=== PATIENT | female | born 1950 | race African-American/Black ===

== ENCOUNTER 2021-06-27 22:25 | Emergency (ER) | payer OTHER ==
--- OUTSIDE RECORDS SUMMARY | 2021-06-27 22:28 | XMS REPORT | Continuity of Care Document ---
:1950 Author Organization [facility] t Address [address] [place] [address] Care Team Providers Name Role Phone Antonino_Vinicio_EALGE Attending Clinician Unavailable Ambrose_A_AH Attending Clinician Unavailable Leeann KELLER Attending Clinician Unavailable Lc HERNANDEZ S Attending Clinician Vinicio MCFADDEN Attending Clinician Unavailable Grupo Mcdaniel MD Attending Clinician Doctor Unassigned, Name Attending Clinician Unavailable Grupo MCDANIEL Attending Clinician Unavailable Antonino_S_AH Admitting Clinician Unavailable Ambrose_A_AH Admitting Clinician Unavailable Payers Payer Name Policy Type Policy Number Effective Date Expiration Date Vinicio garcia [facility] [id number] [facility] (MEDICARE REPLACEMENT/ADVANT AGE - HMO) [facility] [id number] 2018 PLUS CLASSIC/VALUE 00:00:00 Problems Condition Condition Condition Status Onset Resolution Last Treating Co mments Source Name Details Category Date Date Treatment Clinician Date Hyperchole Hyperchole Problem Active [facility] sterolemia sterolemia 1-04 Fa stewart 00:00: Practic 00 e Frailty Frailty Problem Active 2019-05 Village 2-31 Family 00:00: Practic 00 e Hypothyroi Hypothyroi Problem Active [facility] dism dism 3-11 Family 00:00: Practic 00 e Essential Essential Problem Active Savi judi hypertensi Hypertensi 3-11 Fa stewart on on 00:00: Practic 00 e No known No known Disease Unive rs active active ity of problems problems [facility] Allergies, Adverse Reactions, Alerts Allergy Allergy Status Severity Reaction(s) Onset Inactive Treating Comm ents Source Name Type Date Date Clinician NO KNOWN Drug Active Univers ALLERGIE Class ity of S [facility] Social History Social Habit Start Date Stop Date Quantity Comments Source Exposure to Not sure [facility] SARS-CoV-2 [place] [facility] (event) Branch Sex Assigned At [facility] y of [facility] Alcohol intake 2020-01-13 2020-01-13 Current University 00:00:00 00:00:00 non-drinker of [facility] alcohol [place] (finding) Tobacco use and 2020-01-13 2020-01-13 Never used Universit y of exposure 00:00:00 00:00:00 [facility] Smoking Status Start Date Stop Date Source Never smoker [facility] Medications Ordered Filled Start Stop Current Ordering Indication Dosage Frequency Signature Comments Components Source Medication Medication Date Date Medication? Clinician (SIG) Name Name MELOXICAM 2019-05 Yes [id number] Take 1 Un abhinav 7.5 mg 0-21 tablet by ity of tablet 00:00: mouth once [place] 00 daily Medical Branch meloxicam Yes [id number] 7.5mg Take 1 U nivers 7.5 mg 9-01 tablet by ity of tablet 00:00: mouth [place] 00 daily. Medical Branch meloxicam Yes [id number] 7.5mg Take 1 U nivers 7.5 mg 9-01 tablet by ity of tablet 00:00: mouth [place] 00 daily. [facility] meloxicam 2020- No [id number] 7.5mg Take 1 Univers 7.5 mg 9-01 10-21 tablet by ity of tablet 00:00: 00:00 mouth [place] 00 :00 daily. [facility] Branch amLODIPine Yes 10mg Take 10 mg U nivers 10 mg 7-29 by mouth ity of tablet 19:07: daily. [address] hydroCHLORO Yes 25mg Take 25 mg Univers thiazide 25 7-29 by mouth ity of mg tablet 19:07: daily. [address] METOPROLOL Yes 50mg Take 50 mg U nivers SUCCINATE 7-29 by mouth. ity o f ORAL 19:07: [address] levothyroxi Yes 50ug Take 50 Uni vers ne 7-29 mcg by ity of (SYNTHROID) 19:07: mouth [place] 50 mcg 15 every Medical tablet morning. Branch amLODIPine 2019- Yes 10mg Take 10 mg U nivers 10 mg 7-29 by mouth ity of tablet 19:07: daily. [address] hydroCHLORO 2018-0 Yes 25mg Take 25 mg Univers thiazide 25 7-29 by mouth ity of mg tablet 19:07: daily. [address] METOPROLOL 2018- Yes 50mg Take 50 mg U nivers SUCCINATE 7-29 by mouth. ity o f ORAL 19:07: [address] levothyroxi 2018- Yes 50ug Take 50 Uni vers ne 7-29 mcg by ity of (SYNTHROID) 19:07: mouth [place] 50 mcg 15 every Medical tablet morning. Branch amLODIPine Yes 10mg Take 10 mg U nivers 10 mg 7-29 by mouth ity of tablet 19:07: daily. [address] hydroCHLORO Yes 25mg Take 25 mg Univers thiazide 25 7-29 by mouth ity of mg tablet 19:07: daily. [address] METOPROLOL Yes 50mg Take 50 mg U nivers SUCCINATE 7-29 by mouth. ity o f ORAL 19:07: [address] levothyroxi 2018- Yes 50ug Take 50 Uni vers ne 7-29 mcg by ity of (SYNTHROID) 19:07: mouth [place] 50 mcg 15 every Medical tablet morning. Branch amLODIPine Yes 10mg Take 10 mg U nivers 10 mg 7-29 by mouth ity of tablet 19:07: daily. [address] hydroCHLORO 2018- Yes 25mg Take 25 mg Univers thiazide 25 7-29 by mouth ity of mg tablet 19:07: daily. [address] METOPROLOL 2018-0 Yes 50mg Take 50 mg U nivers SUCCINATE 7-29 by mouth. ity o f ORAL 19:07: [address] levothyroxi 2018-0 Yes 50ug Take 50 Uni vers ne 7-29 mcg by ity of (SYNTHROID) 19:07: mouth [place] 50 mcg 15 every Medical tablet morning. Branch amLODIPine 2019- Yes 10mg Take 10 mg U nivers 10 mg 7-29 by mouth ity of tablet 19:07: daily. [address] hydroCHLORO 2018- Yes 25mg Take 25 mg Univers thiazide 25 7-29 by mouth ity of mg tablet 19:07: daily. [address] METOPROLOL Yes 50mg Take 50 mg U nivers SUCCINATE 7-29 by mouth. ity o f ORAL 19:07: [address] levothyroxi Yes 50ug Take 50 Uni vers ne 7-29 mcg by ity of (SYNTHROID) 19:07: mouth [place] 50 mcg 15 every Medical tablet morning. Branch amLODIPine Yes 10mg Take 10 mg U nivers 10 mg 7-29 by mouth ity of tablet 19:07: daily. [address] hydroCHLORO Yes 25mg Take 25 mg Univers thiazide 25 7-29 by mouth ity of mg tablet 19:07: daily. [address] METOPROLOL Yes 50mg Take 50 mg U nivers SUCCINATE 7-29 by mouth. ity o f ORAL 19:07: [address] levothyroxi Yes 50ug Take 50 Uni vers ne 7-29 mcg by ity of (SYNTHROID) 19:07: mouth [place] 50 mcg 15 every Medical tablet morning. Branch amLODIPine Yes 10mg Take 10 mg U nivers 10 mg 7-29 by mouth ity of tablet 19:07: daily. [address] hydroCHLORO 2018- Yes 25mg Take 25 mg Univers thiazide 25 7-29 by mouth ity of mg tablet 19:07: daily. [address] METOPROLOL Yes 50mg Take 50 mg U nivers SUCCINATE 7-29 by mouth. ity o f ORAL 19:07: [address] levothyroxi Yes 50ug Take 50 Uni vers ne 7-29 mcg by ity of (SYNTHROID) 19:07: mouth [place] 50 mcg 15 every Medical tablet morning. Branch amLODIPine Yes 10mg Take 10 mg U nivers 10 mg 7-29 by mouth ity of tablet 19:07: daily. [address] hydroCHLORO Yes 25mg Take 25 mg Univers thiazide 25 7-29 by mouth ity of mg tablet 19:07: daily. [address] METOPROLOL Yes 50mg Take 50 mg U nivers SUCCINATE 7-29 by mouth. ity o f ORAL 19:07: [address] levothyroxi Yes 50ug Take 50 Uni vers ne 7-29 mcg by ity of (SYNTHROID) 19:07: mouth [place] 50 mcg 15 every Medical tablet morning. Branch amLODIPine Yes 10mg Take 10 mg U nivers 10 mg 7-29 by mouth ity of tablet 19:07: daily. [address] hydroCHLORO Yes 25mg Take 25 mg Univers thiazide 25 7-29 by mouth ity of mg tablet 19:07: daily. [address] METOPROLOL Yes 50mg Take 50 mg U nivers SUCCINATE 7-29 by mouth. ity o f ORAL 19:07: [address] levothyroxi Yes 50ug Take 50 Uni vers ne 7-29 mcg by ity of (SYNTHROID) 19:07: mouth [place] 50 mcg 15 every Medical tablet morning. Branch amLODIPine Yes 10mg Take 10 mg U nivers 10 mg 7-29 by mouth ity of tablet 19:07: daily. [address] hydroCHLORO Yes 25mg Take 25 mg Univers thiazide 25 7-29 by mouth ity of mg tablet 19:07: daily. [address] METOPROLOL Yes 50mg Take 50 mg U nivers SUCCINATE 7-29 by mouth. ity o f ORAL 19:07: [address] levothyroxi Yes 50ug Take 50 Uni vers ne 7-29 mcg by ity of (SYNTHROID) 19:07: mouth [place] 50 mcg 15 every Medical tablet morning. Branch amLODIPine Yes 10mg Take 10 mg U nivers 10 mg 7-29 by mouth ity of tablet 19:07: daily. [address] hydroCHLORO Yes 25mg Take 25 mg Univers thiazide 25 7-29 by mouth ity of mg tablet 19:07: daily. [address] METOPROLOL Yes 50mg Take 50 mg U nivers SUCCINATE 7-29 by mouth. ity o f ORAL 19:07: [address] levothyroxi Yes 50ug Take 50 Uni vers ne 7-29 mcg by ity of (SYNTHROID) 19:07: mouth [place] 50 mcg 15 every Medical tablet morning. Branch amLODIPine Yes 10mg Take 10 mg U nivers 10 mg 7-29 by mouth ity of tablet 19:07: daily. [address] hydroCHLORO 2018- Yes 25mg Take 25 mg Univers thiazide 25 7-29 by mouth ity of mg tablet 19:07: daily. [address] METOPROLOL Yes 50mg Take 50 mg U nivers SUCCINATE 7-29 by mouth. ity o f ORAL 19:07: [address] levothyroxi Yes 50ug Take 50 Uni vers ne 7-29 mcg by ity of (SYNTHROID) 19:07: mouth [place] 50 mcg 15 every Medical tablet morning. Branch amLODIPine Yes 10mg Take 10 mg U nivers 10 mg 7-29 by mouth ity of tablet 19:07: daily. [address] hydroCHLORO Yes 25mg Take 25 mg Univers thiazide 25 7-29 by mouth ity of mg tablet 19:07: daily. [address] METOPROLOL Yes 50mg Take 50 mg U nivers SUCCINATE 7-29 by mouth. ity o f ORAL 19:07: [address] levothyroxi Yes 50ug Take 50 Uni vers ne 7-29 mcg by ity of (SYNTHROID) 19:07: mouth [place] 50 mcg 15 every Medical tablet morning. Branch amLODIPine Yes 10mg Take 10 mg U nivers 10 mg 7-29 by mouth ity of tablet 19:07: daily. [address] hydroCHLORO Yes 25mg Take 25 mg Univers thiazide 25 7-29 by mouth ity of mg tablet 19:07: daily. [address] METOPROLOL Yes 50mg Take 50 mg U nivers SUCCINATE 7-29 by mouth. ity o f ORAL 19:07: [address] levothyroxi Yes 50ug Take 50 Uni vers ne 7-29 mcg by ity of (SYNTHROID) 19:07: mouth [place] 50 mcg 15 every Medical tablet morning. Branch amLODIPine Yes 10mg Take 10 mg U nivers 10 mg 7-29 by mouth ity of tablet 19:07: daily. [address] hydroCHLORO Yes 25mg Take 25 mg Univers thiazide 25 7-29 by mouth ity of mg tablet 19:07: daily. [address] METOPROLOL Yes 50mg Take 50 mg U nivers SUCCINATE 7-29 by mouth. ity o f ORAL 19:07: [place] [id number] Medical Branch levothyroxi Yes 50ug Take 50 Uni vers ne 7-29 mcg by ity of (SYNTHROID) 19:07: mouth [place] 50 mcg 15 every Medical tablet morning. Branch diclofenac Yes [id number] 75mg Take 1 Univers 75 mg EC 7- 9104 tablet by ity of tablet 00:00: mouth 2 [place] 00 (two) Medical times Branch daily with meals. diclofenac Yes [id number] 75mg Take 1 Univers 75 mg EC 7- 9104 tablet by ity of tablet 00:00: mouth 2 [place] 00 (two) Medical times Branch daily with meals. diclofenac Yes [id number] 75mg Take 1 Univers 75 mg EC 7- 9104 tablet by ity of tablet 00:00: mouth 2 [place] 00 (two) Medical times Branch daily with meals. hydroCHLORO Yes 25mg Take 25 mg Univers thiazide 25 1-09 by mouth ity of mg tablet 17:13: daily. [address] METOPROLOL Yes 50mg Take 50 mg U nivers SUCCINATE 1-09 by mouth. ity o f ORAL 17:13: [address] levothyroxi Yes 50ug Take 50 Uni vers ne 1-09 mcg by ity of (SYNTHROID) 17:13: mouth [place] 50 mcg 29 every Medical tablet morning. Branch amLODIPine Yes 10mg Take 10 mg U nivers 10 mg 1-09 by mouth ity of tablet 17:13: daily. [address] amlodipine amlodipine No 1 Q1D amlodipine [place] 10 mg 10 mg 10 mg Family tablet Take tablet Take tablet Practic 1 tablet 1 tablet Take 1 e every day every day tablet by oral by oral every day route as route as by oral directed directed route as for 30 for 30 directed days. days. for 30 days. Centrum Centrum No Centrum [place] Silver Silver Silver Family Practic e levothyroxi levothyroxi No 1capsul Q1D levothyrox [place] ne 50 mcg ne 50 mcg e(s) ine 50 mcg Family capsule capsule capsule Practi c Take 1 Take 1 Take 1 e capsule capsule capsule every day every day every day by oral by oral by oral route. route. route. levothyroxi levothyroxi No 1 Q1D levothyrox [facility] ne 50 mcg ne 50 mcg ine 50 mcg Family tablet Take tablet Take tablet Practic 1 tablet 1 tablet Take 1 e every day every day tablet by oral by oral every day route as route as by oral directed directed route as for 30 for 30 directed days. days. for 30 days. metoprolol metoprolol No 1 Q1D metoprolol [facility] succinate succinate succinate [facility] ER 25 mg ER 25 mg ER 25 mg Pra ctic tablet,exte tablet,exte tablet,ext e nded nded ended release 24 release 24 release 24 hr Take 1 hr Take 1 hr Take 1 tablet tablet tablet every day every day every day by oral by oral by oral route as route as route as directed directed directed for 30 for 30 for 30 days. days. days. omega 3 500 omega 3 500 No 1capsul Q1D omega 3 [facility] mg-dha-epa- mg-dha-epa- e(s) 500 F amily B12 500 B12 500 mg-dha-epa Pra ctic mcg-FA 1 mcg-FA 1 -B12 500 e mg-B6 12.5 mg-B6 12.5 mcg-FA 1 mg-phytoste mg-phytoste mg-B6 12.5 rol cap rol cap mg-phytost Take 1 Take 1 price cap capsule capsule Take 1 every day every day capsule by oral by oral every day route. route. by oral route. rosuvastati rosuvastati No 1 Q1D rosuvastat [facility] n 10 mg n 10 mg in 10 mg Famil y tablet Take tablet Take tablet Practic 1 tablet 1 tablet Take 1 e every day every day tablet by oral by oral every day route. route. by oral route. Immunizations Ordered Immunization Filled Immunization Date Status Commen ts Source Name Name influenza, influenza, 2020-04-13 Completed [facility] injectable, injectable, 00:00:00 Practice quadrivalent quadrivalent Vital Signs Vital Name Observation Time Observation Value Comments Source BP Diastolic 2020-05-17 00:00:00 80 mm[Hg] [facility] Height 2020-05-17 00:00:00 65 [in_i] [facility] BMI (Body Mass 2020-05-17 00:00:00 32.4 kg/m2 [facility] Index) Practice BP Systolic 2020-05-17 00:00:00 140 mm[Hg] [facility] Body Weight 2020-05-17 00:00:00 195 [lb_av] [facility] Practice Systolic blood 2020-01-13 13:33:00 131 mm[Hg] Univer sity of pressure [facility] Branch Diastolic blood 2020-01-13 13:33:00 81 mm[Hg] Unive rsity of pressure [facility] Branch Heart rate 2020-01-13 13:33:00 79 /min Universi ty of [facility] Branch Body height 2020-01-13 13:33:00 167.6 cm Universi ty of [place] [facility] Body weight 2020-01-13 13:33:00 89.812 kg Universi ty of [place] [facility] BMI 2020-01-13 13:33:00 31.96 kg/m2 Universi ty of [facility] Branch Systolic blood 2020-01-13 13:33:00 131 mm[Hg] Univer sity of pressure [facility] Branch Diastolic blood 2020-01-13 13:33:00 81 mm[Hg] Unive rsity of pressure [facility] Branch Heart rate 2020-01-13 13:33:00 79 /min Universi ty of [place] [facility] Body height 2020-01-13 13:33:00 167.6 cm Universi ty of [place] [facility] Body weight 2020-01-13 13:33:00 89.812 kg Universi ty of [place] [facility] BMI 2020-01-13 13:33:00 31.96 kg/m2 Universi ty [facility] [place] [facility] Systolic blood 2019-12-11 15:20:00 151 mm[Hg] Univer sity of pressure [facility] Branch Diastolic blood 2019-12-11 15:20:00 80 mm[Hg] Unive rsity of pressure [facility] Branch Heart rate 2019-12-11 15:20:00 93 /min Universi ty of [place] [facility] Body height 2019-12-11 15:20:00 167.6 cm Universi ty [facility] [place] [facility] Body weight 2019-12-11 15:20:00 90.719 kg Universi ty [facility] [place] [facility] BMI 2019-12-11 15:20:00 32.28 kg/m2 Universi ty of [place] [facility] Systolic blood 2018-12-09 19:00:00 142 mm[Hg] Univer sity of pressure [facility] Branch Diastolic blood 2018-12-09 19:00:00 83 mm[Hg] Unive rsity [facility] Heart rate 2018-12-09 19:00:00 76 /min [facility] Respiratory rate 2018-12-09 19:00:00 18 /min [facility] Body height 2018-12-09 19:00:00 165.1 cm [facility] Body weight 2018-12-09 19:00:00 89.359 kg [facility] BMI 2018-12-09 19:00:00 32.78 kg/m2 [facility] Procedures Procedure Date / Time Performing Clinician Source Performed INSURANCE CORRESPONDENCE 2019-12-26 05:01:00 Doctor Unassigned, [facility] [place] [facility] XR KNEE 3 VW LEFT 2019-12-11 15:07:07 Shen Mcdaniel [facility] REFERRAL- 2019-12-08 05:01:00 Doctor Unassigned, [facility] REQUEST/RESPONSE [place] [facility] XR KNEE <3 VW RIGHT 2018-12-09 19:02:49 Shen Mcdaniel [facility] REFERRAL- 2018-12-03 05:01:00 Doctor Unaleeigned, [facility] REQUEST/RESPONSE [place] [place] [facility] Mastectomy of Right 2005-05-15 00:00:00 [facility] Breast Practice Clipping of Intracranial [facility] Aneurysm Practice Plan of Care Planned Activity Planned Date Details Comments Source Instructions [facility] Encounters Start End Encounter Admission Attending Care Care Encounter Source Date/Time Date/Time Type Type Clinicians Facility Department ID 2020-10-20 2020-10-20 Outpatient Miller_S_AH VFP VFP [id number] [facility] 12:22:00 12:22:00 [id number] Family Practic e 2020-09-29 2020-09-29 Outpatient Georgi-Mbayo VFP VFP [id number] [facility] 08:21:00 08:21:00 _A_AH [id number] Family Practic e 2020-07-17 2020-07-17 Outpatient [facility] [id number] Univers 14:50:00 14:50:00 ity [facility] 2020-07-15 2020-07-15 Outpatient Georgi-Mbayo VFP VFP [id number] [facility] 10:21:00 10:21:00 _A_AH [id number] Family Practic e 2020-07-15 2020-07-15 Outpatient Georgi-Mbayo VFP VFP [id number] [facility] 10:21:00 10:21:00 _A_AH [id number] Family Practic e 2020-06-19 2020-06-19 Outpatient Immanuel KELLER, [facility] [id number] Univers 15:30:00 15:30:00 BRUNO leydi [facility] 2020-05-17 2020-05-17 Outpatient Georgi-Mbayo VFP VFP [id number] 10:58:00 10:58:00 _A_AH [id number] Family Practic e 2020-05-17 2020-05-17 Darling VFP [place] - [id number] V illage 00:00:00 00:00:00 Magdy [facility] [address] 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 2020-03-02 2020-03-02 Refcarolyn Mcfadden [facility] [id number] Univers 00:00:00 00:00:00 [facility] [id number] it y of Surgical [id number] [place] as Specialti [id number] [address] 2020-01-13 2020-01-13 Office Lc MEUBALDO 1.2.840.114 [id number] Univers 08:24:11 08:39:11 Visit [facility] [id number] it y of Surgical [id number] [place] as Specialti [id number] Mt dical es [address] [facility] 2020-01-13 2020-01-13 [facility] 1.2.840.114 [id number] 08:24:11 08:39:11 Visit [facility] [id number] Surgical [id number] Specialti [id number] [address] 2020-01-13 2020-01-13 [facility] [id number] Univers 08:30:00 08:30:00 LEE ANN ity [facility] 2020-01-13 2020-01-13 Outpatient Immanuel [facility] [id number] Univers 08:30:00 08:30:00 [facility] 2019-12-31 2019-12-31 Telephone [facility] 1.2.840.114 [id number] Univers 00:00:00 00:00:00 [facility] [employer] [id number] it y of Surgical [id number] [place] as Specialti [id number] Mt dical es [address] [place] [address] 2019-12-26 2019-12-26 Orders Doctor SUNSHINE 1.2.840.114 [id number] Univers 00:00:00 00:00:00 Only Unassigned, MAHNAZ [id number] ity of [facility] 4.2.7.2.686 Luis as [id number] [address] 2019-12-26 2019-12-26 Orders Doctor BITA 1.2.840.114 [id number] 00:00:00 00:00:00 Only Unassigned, MAHNAZ [id number] [facility] 4.2.7.2.686 [id number] [facility] 2019-12-25 2019-12-25 Telephone [facility] 1.2.840.114 [id number] Univers 00:00:00 00:00:00 [facility] [id number] it y of Surgical [id number] [place] as Specialti [id number] Mt dical es [address] [facility] 2019-12-24 2019-12-24 Telephone [facility] 1.2.840.114 [id number] Univers 00:00:00 00:00:00 Shen [facility] [id number] it y of Surgical [id number] [place] as Specialti [id number] Mt dical es 198 [facility] 2019-12-11 2019-12-11 Hospital [facility] 1.2.840.114 [id number] Univers 09:35:00 23:59:00 Encounter Shne Matthews [id number] ity of [place]2.686 [place] [id number] [facility] [address] [place] 2019-12-11 2019-12-11 Office [facility] [id number] Univers 10:14:11 10:57:50 Visit Shen Carrasquillo [id number] it y of Surgical 4.2.7.2.686 [place] as Specialti [id number] Mt dical es [address] [facility] 2019-12-11 2019-12-11 Outpatient R [facility] [id number] Univers 10:15:00 10:15:00 SHEN [id number] ity of [facility] 2019-12-11 2019-12-11 Outpatient R [facility] [id number] Univers 10:15:00 10:15:00 SHEN ity of [facility] 2019-12-10 2019-12-10 Telephone [facility] 1.2.840.114 [id number] Univers 00:00:00 00:00:00 Shen [facility] [id number] it y of Surgical 4.2.7.2.686 [place] as Specialti [id number] Mt dical es 198 [facility] 2019-12-08 2019-12-08 Orders Doctor BITA 1.2.840.114 [id number] Univers 00:00:00 00:00:00 Only Unassigned, MAHNAZ [id number] ity of [facility] 4.2.7.2.686 Luis as [id number] [facility] 009 Branch 2019-07-02 2019-07-02 Outpatient Ambrose [facility] [id number] [facility] 07:14:00 07:14:00 _A_ [id number] Family Practic e 2018-12-09 2018-12-09 Hospital Leticia [facility] 1.2.840.114 [id number] Univers 14:02:48 23:59:00 Encounter Shen Carrasquillo [id number] ity of Surgical 4.2.7.2.686 [place] as Specialti [id number] Mt dical es 809 [facility] 2018-12-09 2018-12-09 Office Leticia [facility] [id number] Univers 13:41:33 14:27:53 Visit Shen Carrasquillo [id number] it y of Surgical 4.2.7.2.686 [place] as Specialti [id number] Mt dical es 198 [facility] 2018-12-03 2018-12-03 Orders Doctor BITA 1.2.840.114 [id number] Univers 00:00:00 00:00:00 Only Unassigned, MAHNAZ [id number] ity of [facility] 4.2.7.2.686 Luis as [id number] [facility] 009 Branch Results Test Description Test Time Test Comments Results Result [facility] e Comments XR KNEE 3 VW 2019-11-14 HISTORY: ?Pain. Univers ity of LEFT 0 FINDINGS: Standing [facility] 15:10:08 AP and lateral Branch views of left knee showed no acutefracture or dislocation. No significant changes of arthritis or aggressivebone lesions seen. No significant knee joint effusion. CONCLUSIONS: No acute fracture or dislocation in left knee. [facility] Results Inft User - 12/11/2019 10:11 AM CDTHISTORY: Pain.FINDINGS: Standing AP and lateral views of left knee showed no acutefracture or dislocation. No significant changes of arthritis or aggressivebone lesions seen. No significant knee joint effusion.CONCLUSION S: No acute fracture or dislocation in left knee. XR KNEE <3 VW 2018-11-12 [facility] [facility] 9 osteoarthritis [facility] 20:22:26 Branch
[2021-06-27 23:53] LABS: Protime INR 1.01
[2021-06-27 23:54] LABS: Absolute Lymphocytes (CBC) 2.5 K/uL (0.7-4.9); Hematocrit 38.9 % (36.0-45.0); Lymphocytes % 28.9 % (15.3-44.8); RBC Red Blood Cell Count 4.35 M/uL (3.86-4.86)
[2021-06-28 00:10] LABS: ALT/SGPT 23 U/L (12-78); AST/SGOT 19 U/L (15-37); Albumin 3.5 g/dL (3.4-5.0); Alkaline Phosphatase 131 U/L (45-117); BUN Blood Urea Nitrogen 18 mg/dL (7-18); Bicarbonate 32 mmol/L (21-32); Bilirubin Direct < 0.1 mg/dL (0-0.2); Bilirubin Total 0.2 mg/dL (0.2-1.0); Glucose Level 113 mg/dL (74-106); Magnesium 2.1 mg/dL (1.8-2.4); NT PRO-BNP 188 pg/mL (<125); Potassium 3.2 mmol/L (3.5-5.1); Sodium Level 139 mmol/L (136-145)
--- NOTE | 2021-06-28 00:39 | ER ---
Nurse's Notes [facility] Name: Berenice Chatman Age: 70 yrs Sex: Female : 1950 Arrival Date: 06/27/2021 Time: 22:27 Bed 15 Private MD: Diagnosis: Essential (primary) hypertension;Hypokalemia;Dizziness and giddiness Presentation: 06/27 22:40 Chief complaint: Patient states: High Blood Pressure which has been getting worse over st1 the past 2 weeks. The patient has been on losartan since 06/15/2021 which has not been working for her. Coronavirus screen: Vaccine status: Patient reports receiving the 2nd dose of the covid vaccine. moderna Client denies travel out of the [place] in the last 14 days. Ebola Screen: No symptoms or risks identified at this time. Initial Sepsis Screen: Does the patient meet any 2 criteria? No. Patient's initial sepsis screen is negative. Risk Assessment: Do you want to hurt yourself or someone else? Patient reports no desire to harm self or others. 22:40 Method Of Arrival: Ambulatory st1 22:42 Acuity: ASHLEY 3 st1 06/28 00:30 Initial Sepsis Screen: Does the patient have a suspected source of infection? No. vc1 Patient's initial sepsis screen is negative. Onset of symptoms is unknown. Triage Assessment: 06/27 22:45 General: Appears in no apparent distress. comfortable, Behavior is calm, cooperative. st1 Pain: Denies pain. Historical: - Allergies: 22:43 Lisinopril; st1 - PMHx: 22:43 Hypertensive disorder; Aneurysm; st1 - Immunization history:: Adult Immunizations up to date. - Social history:: Patient/guardian denies using alcohol, street drugs, IV drugs, Smoking status: Patient denies any tobacco usage or history of. - Family history:: not pertinent. Screenin:00 Abuse screen: Denies threats or abuse. Nutritional screening: No deficits noted. vc1 Tuberculosis screening: No symptoms or risk factors identified. Fall Risk None identified. Assessment: 23:00 General: Appears in no apparent distress. comfortable, Behavior is calm, cooperative, vc1 appropriate for age. Pain: Denies pain. Neuro: No deficits noted. Cardiovascular: Reports since High BP Denies chest pain. 23:00 Respiratory: No deficits noted. vc1 06/28 00:48 Reassessment: Patient appears in no apparent distress at this time. Patient and/or vc1 family updated on plan of care and expected duration. Pain level reassessed. Patient is alert, oriented x 3, equal unlabored respirations, skin warm/dry/pink. Patient states symptoms have improved. Vital Signs: 06/27 22:42 BP 176 / 90; Pulse 70; Resp 20; Temp 97.8(O); Pulse Ox 100% on R/A; Weight 88.45 kg; st1 Height 5 ft. 5 in. (165.10 cm); Pain 0/10; 06/28 00:00 BP 159 / 86; Pulse 69; Resp 20; Pulse Ox 100% ; vc1 00:30 BP 150 / 83; Pulse 64; Resp 18; Pulse Ox 100% ; Pain 0/10; vc1 06/27 22:42 Body Mass Index 32.45 (88.45 kg, 165.10 cm) st1 ED Course: 06/27 22:27 Patient arrived in ED. es 22:42 Triage completed. st1 22:46 Arm band placed on right wrist. st1 22:49 Brian Chatman MD is Attending Physician. drew 23:00 Patient has correct armband on for positive identification. Placed in gown. Bed in low vc1 position. Call light in reach. Side rails up X2. hospital security officer on. Pulse ox on. NIBP on. 23:29 XRAY Chest (1 view) Sent. vc1 23:29 Basic Metabolic Panel Sent. vc1 23:29 CBC with Diff Sent. vc1 23:29 LFT's Sent. vc1 23:29 Magnesium Sent. vc1 23:29 NT PRO-BNP Sent. vc1 23:29 PT-INR Sent. vc1 23:29 Troponin HS Sent. vc1 23:33 XRAY Chest (1 view) In Process Unspecified. EDMS 23:42 Basic Metabolic Panel Sent. vc1 23:42 CBC with Diff Sent. vc1 23:42 LFT's Sent. vc1 23:42 Magnesium Sent. vc1 23:42 NT PRO-BNP Sent. vc1 23:42 PT-INR Sent. vc1 23:42 Troponin HS Sent. vc1 06/28 00:38 Miguel Angel lEder MD is Referral Physician. drew 00:46 Lizbeth Ferrera, RN is Primary Nurse. vc1 01:06 No provider procedures requiring assistance completed. IV discontinued, intact, vc1 bleeding controlled, No redness/swelling at site. Pressure dressing applied. Administered Medications: 01:06 Drug: Potassium Effervescent Tablet 50 mEq Route: PO; vc1 01:06 Follow up: Response: No adverse reaction vc1 Outcome: 00:38 Discharge ordered by . [facility] 01:06 Discharged to home ambulatory. vc1 01:06 Condition: good 01:06 Discharge instructions given to patient, Instructed on discharge instructions, follow up and referral plans. Demonstrated understanding of instructions, follow-up care. 01:06 Patient left the ED. vc1 Signatures: Dispatcher [employer] Brian Cabrera MD MD cha Salyer, Edna es Tingle, Shellie, RN RN st1 Lizbeth Ferrera, RN RN vc1
--- NOTE | 2021-06-28 00:40 | EDPHYS ---
Physician Documentation [facility] Name: Berenice Chatman Age: 70 yrs Sex: Female : 1950 Arrival Date: 06/27/2021 Time: 22:27 Bed 15 Private MD: ED Physician Brian Chatman HPI: 06/28 00:13 This 70 yrs old Black Female presents to ER via Ambulatory with complaints of High drew Blood Pressure. 00:13 The patient has elevated blood pressure and discovered this at home. Onset: The drew symptoms/episode began/occurred just prior to arrival. Modifying factors: The symptoms are aggravated by activity, The symptoms are alleviated by remaining still. Associated signs and symptoms: Pertinent positives: dizziness. Severity of symptoms: At its worst the blood pressure was mild, moderate, in the emergency department the blood pressure is improved, moderately. The patient has experienced similar episodes in the past, multiple times. Historical: - Allergies: 06/27 22:43 Lisinopril; st1 - PMHx: 22:43 Hypertensive disorder; Aneurysm; st1 - Immunization history:: Adult Immunizations up to date. - Social history:: Patient/guardian denies using alcohol, street drugs, IV drugs, Smoking status: Patient denies any tobacco usage or history of. - Family history:: not pertinent. ROS: 06/28 00:13 Constitutional: Negative for fever, chills, and weight loss, Eyes: Negative for injury, drew pain, redness, and discharge, ENT: Negative for injury, pain, and discharge, Neck: Negative for injury, pain, and swelling, Cardiovascular: Negative for chest pain, palpitations, and edema, Respiratory: Negative for shortness of breath, cough, wheezing, and pleuritic chest pain, Abdomen/GI: Negative for abdominal pain, nausea, vomiting, diarrhea, and constipation, Back: Negative for injury and pain, : Negative for injury, bleeding, discharge, and swelling, MS/Extremity: Negative for injury and deformity, Skin: Negative for injury, rash, and discoloration, Psych: Negative for depression, anxiety, suicide ideation, homicidal ideation, and hallucinations, Allergy/Immunology: Negative for hives, rash, and allergies, Endocrine: Negative for neck swelling, polydipsia, polyuria, polyphagia, and marked weight changes, Hematologic/Lymphatic: Negative for swollen nodes, abnormal bleeding, and unusual bruising. Neuro: Positive for dizziness. Exam: 00:13 Constitutional: This is a well developed, well nourished patient who is awake, alert, drew and in no acute distress. Head/Face: Normocephalic, atraumatic. Eyes: Pupils equal round and reactive to light, extra-ocular motions intact. Lids and lashes normal. Conjunctiva and sclera are non-icteric and not injected. Cornea within normal limits. Periorbital areas with no swelling, redness, or edema. ENT: Nares patent. No nasal discharge, no septal abnormalities noted. Tympanic membranes are normal and external auditory canals are clear. Oropharynx with no redness, swelling, or masses, exudates, or evidence of obstruction, uvula midline. Mucous membranes moist. Neck: Trachea midline, no thyromegaly or masses palpated, and no cervical lymphadenopathy. Supple, full range of motion without nuchal rigidity, or vertebral point tenderness. No Meningismus. Chest/axilla: Normal chest wall appearance and motion. Nontender with no deformity. No lesions are appreciated. Cardiovascular: Regular rate and rhythm with a normal S1 and S2. No gallops, murmurs, or rubs. Normal PMI, no JVD. No pulse deficits. Respiratory: Lungs have equal breath sounds bilaterally, clear to auscultation and percussion. No rales, rhonchi or wheezes noted. No increased work of breathing, no retractions or nasal flaring. Abdomen/GI: Soft, non-tender, with normal bowel sounds. No distension or tympany. No guarding or rebound. No evidence of tenderness throughout. Back: No spinal tenderness. No costovertebral tenderness. Full range of motion. Female : Normal external genitalia. Skin: Warm, dry with normal turgor. Normal color with no rashes, no lesions, and no evidence of cellulitis. MS/ Extremity: Pulses equal, no cyanosis. Neurovascular intact. Full, normal range of motion. Neuro: Awake and alert, GCS 15, oriented to person, place, time, and situation. Cranial nerves II-XII grossly intact. Motor strength 5/5 in all extremities. Sensory grossly intact. Cerebellar exam normal. Normal gait. Psych: Awake, alert, with orientation to person, place and time. Behavior, mood, and affect are within normal limits. 00:13 ECG was reviewed by the Attending Physician. Vital Signs: 06/27 22:42 BP 176 / 90; Pulse 70; Resp 20; Temp 97.8(O); Pulse Ox 100% on R/A; Weight 88.45 kg; st1 Height 5 ft. 5 in. (165.10 cm); Pain 0/10; 06/28 00:00 BP 159 / 86; Pulse 69; Resp 20; Pulse Ox 100% ; vc1 00:30 BP 150 / 83; Pulse 64; Resp 18; Pulse Ox 100% ; Pain 0/10; vc1 06/27 22:42 Body Mass Index 32.45 (88.45 kg, 165.10 cm) st1 MDM: 06/27 22:49 Patient medically screened. [facility] 06/28 00:20 Differential diagnosis: hypertensive crisis, Malignant HTN. Data reviewed: vital signs, [facility] nurses notes, lab test result(s), EKG, radiologic studies, plain films. Data interpreted: cobol developer: rate is 70 beats/min, rhythm is regular, Pulse oximetry: on room air. Test interpretation: by ED physician or midlevel provider: ECG, plain radiologic studies. Counseling: I had a detailed discussion with the patient and/or guardian regarding: the historical points, exam findings, and any diagnostic results supporting the discharge/admit diagnosis, lab results, radiology results, the need for outpatient follow up, for definitive care, a it programmer analyst, a family practitioner. 06/27 22:54 Order name: Basic Metabolic Panel; Complete Time: 00:37 [facility] 06/27 22:54 Order name: CBC with Diff; Complete Time: 00:37 [facility] 06/27 22:54 Order name: LFT's; Complete Time: 00:37 [facility] 06/27 22:54 Order name: Magnesium; Complete Time: 00:37 [facility] 06/27 22:54 Order name: NT PRO-BNP; Complete Time: 00:37 [facility] 06/27 22:54 Order name: PT-INR; Complete Time: 00:37 [facility] 06/27 22:54 Order name: Troponin HS; Complete Time: 00:37 [facility] 06/27 22:54 Order name: XRAY Chest (1 view) [facility] 06/27 22:54 Order name: EKG; Complete Time: 22:55 [facility] 06/27 22:54 Order name: Cardiac monitoring; Complete Time: 23:41 [facility] 06/27 22:54 Order name: EKG - Nurse/Tech; Complete Time: 23:29 [facility] 06/27 22:54 Order name: IV Saline Lock; Complete Time: : [facility] 06/28 00:52 Order name: Urine Dipstick-Ancillary; Complete Time: 01:01 [facility] 06/27 22:54 Order name: Labs collected and sent; Complete Time: 23:29 [facility] 06/27 22:54 Order name: O2 Per Protocol; Complete Time: : [facility] 06/27 22:54 Order name: O2 Sat Monitoring; Complete Time: : [facility] 06/27 22:54 Order name: Urine Dipstick-Ancillary (obtain specimen); Complete Time: 00:52 [facility] EC:13 Rate is 68 beats/min. Rhythm is regular. QRS [place] is Normal. [place] interval is normal. QRS drew interval is normal. QT interval is normal. No Q waves. T waves are Normal. No ST changes noted. Clinical impression: NSR w/ Non-specific ST/T Changes and No evidence of ischemia. Interpreted by me. Reviewed by me. Administered Medications: 01:06 Drug: Potassium Effervescent Tablet 50 mEq Route: PO; vc1 01:06 Follow up: Response: No adverse reaction vc1 Disposition Summary: 06/28/21 00:38 Discharge Ordered Location: Home drew Problem: new drew Symptoms: have improved drew Condition: Stable drew Diagnosis - Essential (primary) hypertension drew - Hypokalemia drew - Dizziness and giddiness drwe Followup: drew - With: Private Physician - When: 2 - 3 days - Reason: Recheck today's complaints, Continuance of care, Re-evaluation by your physician Followup: drew - With: Miguel Angel Elder MD - When: 2 - 3 days - Reason: Recheck today's complaints, Re-evaluation by your physician Discharge Instructions: - Discharge Summary Sheet drew - Potassium Content of Foods drew - Hypertension, Adult drew - Hypertension, Adult, [id number] drew - How to Take Your Blood Pressure, [id number] drew - Dizziness drew - Aspirin and Your Heart drew - Managing Your Hypertension drew - Hypokalemia drew - Dizziness, [id number] drew Forms: - Medication Reconciliation Form drew - Thank You Letter drew - Antibiotic Education drew - Prescription Opioid Use drew Signatures: Dispatcher [employer] Brian Cabrera MD MD cha Tingle, Shellie, RN RN st1 Lizbeth Ferrera RN RN vc1
[2021-06-28 00:52] LABS: Urine Blood Negative (Negative); Urine Glucose Negative (Negative); Urine Protein Negative (Negative)
[2021-06-28] MEDS ORDERED: POTASSIUM 25 MEQ EFFERV TAB ONE (00:53)
[2021-06-28 01:46] VITALS: TEMP 97.8; O2SAT 100
[2021-06-28 01:48] VITALS: BP 150/83
--- NOTE | 2021-06-28 08:50 | RAD REPORT ---
EXAM DESCRIPTION: RAD - Chest Single View - 06/27/2021 11:33 pm CLINICAL HISTORY: COUGH COMPARISON: Two view chest 12/21/2020 TECHNIQUE: AP portable chest image was obtained 06/27/2021 11:33 pm . FINDINGS: Lung volumes are very low in the patient is in a lordotic position. Interstitial pattern i s accentuated by these limitations. A mild edema or infiltrate could be masked. No peripheral mass or consolidation. Left-sided Port-A-Cath remains in place. Heart and vasculature are normal. No measurable pleural effusion and no pneumothorax. No acute bony abnormality seen. No acute aortic findings suspected. IMPRESSION: Limited portable study is not grossly different from the comparison. No focal consolidation to suspect bacterial pneumonia. A mild interstitial edema or infiltrate could be masked.
--- NOTE | 2021-06-28 10:15 | EKG ---
Test Date: 2021-06-27 Test Time: 23:11:27 Lead Sustainability Specialist: LMT MEASUREMENT RESULTS: Intervals: Rate: 68 [place]: 180 QRSD: 100 QT: 438 QTc: 465 [place]: P: 44 [place]: 180 QRS: 3 T: 46 INTERPRETIVE STATEMENTS: Normal sinus rhythm with sinus arrhythmia Normal ECG No previous ECG available for comparison Electronically Signed On 06-28-21 10:14:23 ANGIOGRAPHY TECHNOLOGIST by Miguel Angel Elder
== END 2021-06-28 01:06 | disposition home or self-care (01) ==
LOC: ER 22:25
DX: I10 Essential (primary) hypertension (principal); E87.6 Hypokalemia; R42 Dizziness and giddiness
CPT/HCPCS: 36415; 71045; 80048; 80076; 81003; 83735; 83880; 84484; 85025; 85610; 93005; 99284

== ENCOUNTER 2021-08-15 07:49 | Day surgery (SDC) | payer OTHER ==
[2021-08-15] MEDS ORDERED: NA CHLORIDE 0.9% 50 ML ONE (08:11)
[2021-08-15] MEDS ORDERED: Ringers Lactate 1,000 ML IV ONE (08:11)
[2021-08-15] MEDS ORDERED: CEFAZOLIN SODIUM 1 GM/VIAL ONE (08:11)
[2021-08-15] MEDS ORDERED: LIDOCAINE 1% MPF 5 ML VIAL ONE (09:11)
[2021-08-15] MEDS ORDERED: FENTANYL CITR 100 MCG/2 ML ONE (09:11)
[2021-08-15] MEDS ORDERED: propofoL 200 MG/20 ML VIAL IV ONE ×2 (09:11→09:52)
[2021-08-15] MEDS ORDERED: KETOROLAC 30 MG/ML INJ ONE (09:32)
[2021-08-15] MEDS ORDERED: Mastisol Adhesive Liq ONE (10:15)
--- NOTE | 2021-08-15 10:22 | RAD REPORT ---
EXAM DESCRIPTION: RAD - Fluoroscopy <1 Hour - 08/15/2021 10:12 am CLINICAL HISTORY: PORT A CATH REMOVAL COMPARISON: No comparisons FINDINGS: Fluoroscopic imaging is submitted from removal of a venous catheter. Details of the proce dure not available. Fluoroscopy time: 0.1 minutes
--- NOTE | 2021-08-15 10:25 | P.OP ---
Automotive Parts Salesperson: Elmo MENDEZ Preoperative diagnosis: Breast cancer, status post Port-A-Cath placement Postoperative diagnosis: Same Primary procedure: Removal of Port-A-Cath Anesthesia: MAC Estimated blood loss: Minimal Specimen: Port-A-Cath and part of the catheter Findings: As above Operative Technique: Patient brought to the OR and placed in supine position. MAC anesthesia begun. Patient prepped draped in usual sterile fashion. Marcaine 0.5% infiltrated locally. 15 blade used to make a 3 cm incision over the Port-A-Cath in the left anterior chest. Subcutaneous tissue divided. Sharp and blunt dissection utilized to free the port from the surrounding tissue. The catheter however was densely adherent and could not be removed easily. Counterincision was made below the clavicle where the insertion site of the catheter was. This incision was approximately 2 cm in length. Subcutaneous tissue divided and catheter identified. While dissecting the catheter, it broke. Fluoroscopy was performed and revealed that the catheter was still in the subclavian vein with the tip being in the superior vena cava. At this time made a decision not to explore this area any further because the risks outweighed the benefit. Subsequently, both wounds were irrigated bleeding controlled with cautery and 3-0 chromic used to reapproximate subcutaneous tissue and closed skin. Sterile dressing applied. Patient awakened and taken to recovery room in good general condition. I discussed the case with a interventional radiologist in [place] who will see the patient as an outpatient and remove this catheter piece that is still in the superior vena cava and subclavian vein. The findings of the procedure were discussed in detail with the family and patient. Complications: Other (Piece of catheter still in the subclavian vein) Transferred to: Recovery Room Condition: Good
[2021-08-15 11:21] VITALS: BP 127/71; TEMP 97.1; O2SAT 96
--- NOTE | 2021-08-18 11:05 | P.HP ---
Date of Service: 08/18/21 Chief complaint: Needs Port-A-Cath removed History of present Illness: Patient is a 70-year-old female with a history of breast cancer on the right side. She is status post mastectomy. She has been treated with chemotherapy. She no longer needs the Port-A-Cath. Patient denies fever, chills or any signs and symptoms of infection. Review of systems: Otherwise unremarkable Past medical history: Hypertension and breast cancer Past surgical history: Cerebral aneurysm surgery, right side mastectomy in 2005 Allergies: None Social history: Patient does not smoke or drink alcohol Family history: Noncontributory Vital signs: Vital signs stable afebrile Physical exam: Awake alert oriented x3 Head and neck: No masses Chest: Clear, Port-A-Cath present in the left anterior chest Heart: S1-S2 Abdomen: Soft Extremity: Well-perfused, nontender Neuro: Nonfocal Diagnostic data: Reviewed Assessment: Right breast cancer, status post mastectomy and Port-A-Cath placement. Plan/recommendation: Removal of Port-A-Cath. Patient understands risk, benefits alternatives and agrees to procedure. CC: Dr. Collins's office
== END 2021-08-15 11:53 | disposition home or self-care (01) ==
LOC: OR 07:49
PROVIDERS: ATTEND Surgery
PROC: 0JPT0WZ Removal of Totally Implantable Vascular Access Device from Trunk Subcutaneous Tissue and Fascia, Open Approach (ICD-10-PCS; principal; 2021-08-15 09:15)
DX: Z45.2 Encounter for adjustment and management of vascular access device (principal); Z85.3 Personal history of malignant neoplasm of breast; Z20.822 Contact with and (suspected) exposure to COVID-19
CPT/HCPCS: 88300; 36590; U0002; J2704 ×2; J3010; J7120; J0690; 76000

== ENCOUNTER 2022-07-21 17:27 | Emergency (ER) | payer OTHER ==
--- OUTSIDE RECORDS SUMMARY | 2022-07-21 17:30 | XMS REPORT | Continuity of Care Document ---
:1950 Author Organization [facility] t Address [address] [facility]. [address] [place] [address] Care Team Providers Name Role Phone John Bales Primary Care Physician Doctor Unassigned, [place] Attending Clinician Unavailable Antonino_S_EAGLE Attending Clinician Unavailable Ambrose_A_AH Attending Clinician Unavailable BRUNO KELLER Attending Clinician Unavailable Lee Ann Ch Attending Clinician LEE ANN MCFADDEN Attending Clinician Unavailable Shen Mcdaniel MD Attending Clinician SHEN MCDANIEL Attending Clinician Unavailable Shanti_EAGLE Admitting Clinician Unavailable Ambrose_A_AH Admitting Clinician Unavailable Payers Payer Name Policy Type Policy Number Effective Date Expiration Date S [facility] OF [place] - [id number] 2019 [place] 00:00:00 (MEDICARE REPLACEMENT/ADVANT AGE - HMO) Problems Condition Condition Condition Status Onset Resolution [...] rs active active ity of problems problems [facility] Allergies, Adverse Reactions, Alerts Allergy Allergy Status Severity Reaction(s) Onset Inactive Treating Comm ents Source Name Type Date Date Clinician NO KNOWN Drug Active Univers ALLERGIE Class ity of S [facility] Social History Social Habit Start Date Stop Date Quantity Comments Source Exposure to Not sure University of SARS-CoV-2 [place] [facility] (event) Branch Alcohol intake 2020-01-13 2020-01-13 Current University of 00:00:00 00:00:00 non-drinker of [facility] alcohol Branch (finding) Tobacco use and 2018-05-17 2018-05-17 Never used Universit y of exposure 00:00:00 00:00:00 [facility] Sex Assigned At [birth year] Universit y of 00:00:00 00:00:00 [facility] Smoking Status Start Date Stop Date Source Never Smoker [facility] Medications Ordered Filled Start Stop Current Ordering Indication Dosage Frequency Signature Comments Components Source Medication Medication Date Date Medication? Clinician (SIG) Name Name MELOXICAM 2019-05 Yes [id number] Take 1 Un abhinav 7.5 mg 0-21 tablet by ity of tablet 00:00: mouth once [place] 00 daily Medical Branch MELOXICAM 2019-05 Yes [id number] Take 1 Uni vers 7.5 mg 0-21 tablet by ity of tablet 00:00: mouth once [place] 00 daily Medical Branch meloxicam Yes [id number] 7.5mg Take 1 U nivers 7.5 mg 9-01 tablet by ity of tablet 00:00: mouth [place] 00 daily. Medical Branch meloxicam Yes [id number] 7.5mg Take 1 U nivers 7.5 mg 9-01 tablet by ity of tablet 00:00: mouth [place] 00 daily. Medical Branch meloxicam 2020- No [id number] 7.5mg Take 1 Univers 7.5 mg 9-01 10-21 tablet by ity of tablet 00:00: 00:00 mouth [place] 00 :00 daily. Medical Branch amLODIPine Yes 10mg Take 10 mg U nivers 10 mg 7-29 by mouth ity of tablet 19:07: daily. [place] 15 [facility] hydroCHLORO Yes 25mg Take 25 mg Univers thiazide 25 7-29 by mouth ity of mg tablet 19:07: daily. [address] METOPROLOL Yes 50mg Take 50 mg U nivers SUCCINATE 7-29 by mouth. ity o f ORAL 19:07: [address] levothyroxi Yes 50ug Take 50 Uni vers ne 7-29 mcg by ity of (SYNTHROID) 19:07: mouth [place] 50 mcg 15 every Medical tablet morning. Branch amLODIPine Yes 10mg Take 10 mg U nivers 10 mg 7-29 by mouth ity of tablet 19:07: daily. [address] hydroCHLORO Yes 25mg Take 25 mg Univers thiazide 25 7-29 by mouth ity of mg tablet 19:07: daily. [address] METOPROLOL Yes 50mg Take 50 mg U nivers SUCCINATE 7-29 by mouth. ity o f ORAL 19:07: [address] levothyroxi Yes 50ug Take 50 Uni vers ne 7-29 mcg by ity of (SYNTHROID) 19:07: mouth [place] 50 mcg 15 every Medical tablet morning. Branch amLODIPine Yes 10mg Take 10 mg U nivers 10 mg 7-29 by mouth ity of tablet 19:07: daily. [address] hydroCHLORO Yes 25mg Take 25 mg Univers thiazide 25 7-29 by mouth ity of mg tablet 19:07: daily. [address] METOPROLOL Yes 50mg Take 50 mg U nivers SUCCINATE 7-29 by mouth. ity o f ORAL 19:07: [address] levothyroxi Yes 50ug Take 50 Uni vers ne 7-29 mcg by ity of (SYNTHROID) 19:07: mouth [place] 50 mcg 15 every Medical tablet morning. Branch amLODIPine Yes 10mg Take 10 mg U nivers 10 mg 7-29 by mouth ity of tablet 19:07: daily. [address] hydroCHLORO 2018-0 Yes 25mg Take 25 mg Univers thiazide 25 7-29 by mouth ity of mg tablet 19:07: daily. [address] METOPROLOL Yes 50mg Take 50 mg U nivers SUCCINATE 7-29 by mouth. ity o f ORAL 19:07: [address] levothyroxi 2018- Yes 50ug Take 50 Uni vers ne 7-29 mcg by ity of (SYNTHROID) 19:07: mouth [place] 50 mcg 15 every Medical tablet morning. Branch amLODIPine 2018- Yes 10mg Take 10 mg U nivers 10 mg 7-29 by mouth ity of tablet 19:07: daily. [address] hydroCHLORO Yes 25mg Take 25 mg Univers thiazide 25 7-29 by mouth ity of mg tablet 19:07: daily. [address] METOPROLOL Yes 50mg Take 50 mg U nivers SUCCINATE 7-29 by mouth. ity o f ORAL 19:07: [address] levothyroxi Yes 50ug Take 50 Uni vers ne 7-29 mcg by ity of (SYNTHROID) 19:07: mouth [place] 50 mcg 15 every Medical tablet morning. Branch amLODIPine Yes 10mg Take 10 mg U nivers 10 mg 7-29 by mouth ity of tablet 19:07: daily. [address] hydroCHLORO Yes 25mg Take 25 mg Univers thiazide 25 7-29 by mouth ity of mg tablet 19:07: daily. [address] METOPROLOL Yes 50mg Take 50 mg U nivers SUCCINATE 7-29 by mouth. ity o f ORAL 19:07: [address] levothyroxi Yes 50ug Take 50 Uni vers ne 7-29 mcg by ity of (SYNTHROID) 19:07: mouth [place] 50 mcg 15 every Medical tablet morning. Branch amLODIPine Yes 10mg Take 10 mg U nivers 10 mg 7-29 by mouth ity of tablet 19:07: daily. [address] hydroCHLORO 2018- Yes 25mg Take 25 mg Univers thiazide 25 7-29 by mouth ity of mg tablet 19:07: daily. [address] METOPROLOL 2018- Yes 50mg Take 50 mg U nivers SUCCINATE 7-29 by mouth. ity o f ORAL 19:07: [address] levothyroxi 2018-0 Yes 50ug Take 50 Uni vers ne 7-29 mcg by ity of (SYNTHROID) 19:07: mouth [place] 50 mcg 15 every Medical tablet morning. Branch amLODIPine Yes 10mg Take 10 mg U nivers 10 mg 7-29 by mouth ity of tablet 19:07: daily. [address] hydroCHLORO Yes 25mg Take 25 mg Univers thiazide 25 7-29 by mouth ity of mg tablet 19:07: daily. [address] METOPROLOL Yes 50mg Take 50 mg U nivers SUCCINATE 7-29 by mouth. ity o f ORAL 19:07: [address] levothyroxi Yes 50ug Take 50 Uni vers ne 7-29 mcg by ity of (SYNTHROID) 19:07: mouth [place] 50 mcg 15 every Medical tablet morning. Branch amLODIPine Yes 10mg Take 10 mg U nivers 10 mg 7-29 by mouth ity of tablet 19:07: daily. [address] hydroCHLORO Yes 25mg Take 25 mg Univers thiazide 25 7-29 by mouth ity of mg tablet 19:07: daily. [address] METOPROLOL Yes 50mg Take 50 mg U nivers SUCCINATE 7-29 by mouth. ity o f ORAL 19:07: [address] levothyroxi Yes 50ug Take 50 Uni vers ne 7-29 mcg by ity of (SYNTHROID) 19:07: mouth [place] 50 mcg 15 every Medical tablet morning. Branch amLODIPine Yes 10mg Take 10 mg U nivers 10 mg 7-29 by mouth ity of tablet 19:07: daily. [address] hydroCHLORO Yes 25mg Take 25 mg Univers thiazide 25 7-29 by mouth ity of mg tablet 19:07: daily. [address] METOPROLOL Yes 50mg Take 50 mg U nivers SUCCINATE 7-29 by mouth. ity o f ORAL 19:07: [address] levothyroxi Yes 50ug Take 50 Uni vers ne 7-29 mcg by ity of (SYNTHROID) 19:07: mouth [place] 50 mcg 15 every Medical tablet morning. Branch amLODIPine Yes 10mg Take 10 mg U nivers 10 mg 7-29 by mouth ity of tablet 19:07: daily. [address] hydroCHLORO Yes 25mg Take 25 mg Univers thiazide 25 7-29 by mouth ity of mg tablet 19:07: daily. [address] METOPROLOL Yes 50mg Take 50 mg U nivers SUCCINATE 7-29 by mouth. ity o f ORAL 19:07: [address] levothyroxi Yes 50ug Take 50 Uni vers ne 7-29 mcg by ity of (SYNTHROID) 19:07: mouth [place] 50 mcg 15 every Medical tablet morning. Branch amLODIPine Yes 10mg Take 10 mg U nivers 10 mg 7-29 by mouth ity of tablet 19:07: daily. [address] hydroCHLORO Yes 25mg Take 25 mg Univers thiazide 25 7-29 by mouth ity of mg tablet 19:07: daily. [address] METOPROLOL Yes 50mg Take 50 mg U nivers SUCCINATE 7-29 by mouth. ity o f ORAL 19:07: [address] levothyroxi Yes 50ug Take 50 Uni vers ne 7-29 mcg by ity of (SYNTHROID) 19:07: mouth [place] 50 mcg 15 every Medical tablet morning. Branch amLODIPine Yes 10mg Take 10 mg U nivers 10 mg 7-29 by mouth ity of tablet 19:07: daily. [address] hydroCHLORO Yes 25mg Take 25 mg Univers thiazide 25 7-29 by mouth ity of mg tablet 19:07: daily. [address] METOPROLOL Yes 50mg Take 50 mg U nivers SUCCINATE 7-29 by mouth. ity o f ORAL 19:07: [address] levothyroxi Yes 50ug Take 50 Uni vers ne 7-29 mcg by ity of (SYNTHROID) 19:07: mouth [place] 50 mcg 15 every Medical tablet morning. Branch amLODIPine Yes 10mg Take 10 mg U nivers 10 mg 7-29 by mouth ity of tablet 19:07: daily. [address] hydroCHLORO Yes 25mg Take 25 mg Univers thiazide 25 7-29 by mouth ity of mg tablet 19:07: daily. [address] METOPROLOL Yes 50mg Take 50 mg U nivers SUCCINATE 7-29 by mouth. ity o f ORAL 19:07: [address] levothyroxi Yes 50ug Take 50 Uni vers ne 7-29 mcg by ity of (SYNTHROID) 19:07: mouth [place] 50 mcg 15 every Medical tablet morning. Branch amLODIPine Yes 10mg Take 10 mg U nivers 10 mg 7-29 by mouth ity of tablet 19:07: daily. [address] hydroCHLORO Yes 25mg Take 25 mg Univers thiazide 25 7-29 by mouth ity of mg tablet 19:07: daily. [address] METOPROLOL Yes 50mg Take 50 mg U nivers SUCCINATE 7-29 by mouth. ity o f ORAL 19:07: [address] levothyroxi Yes 50ug Take 50 Uni vers ne 7-29 mcg by ity of (SYNTHROID) 19:07: mouth [place] 50 mcg 15 every Medical tablet morning. Branch amLODIPine Yes 10mg Take 10 mg U nivers 10 mg 7-29 by mouth ity of tablet 14:07: daily. [address] hydroCHLORO Yes 25mg Take 25 mg Univers thiazide 25 7-29 by mouth ity of mg tablet 14:07: daily. [address] METOPROLOL Yes 50mg Take 50 mg U nivers SUCCINATE 7-29 by mouth. ity o f ORAL 14:07: [address] levothyroxi Yes 50ug Take 50 Uni vers ne 7-29 mcg by ity of (SYNTHROID) 14:07: mouth [place] 50 mcg 15 every Medical tablet morning. Branch diclofenac Yes [id number] 75mg Take 1 Univers 75 mg EC 7-29 9104 tablet by ity of tablet 00:00: mouth 2 [place] [address] [facility] times [place] daily with meals. diclofenac Yes [id number] 75mg Take 1 Univers 75 mg EC 7-29 9104 tablet by ity of tablet 00:00: mouth 2 [place] [address] ([facility] times [place] daily with meals. diclofenac Yes [id number] 75mg Take 1 Univers 75 mg EC 7-29 9104 tablet by ity of tablet 00:00: mouth 2 [place] ([facility] times [place] daily with meals. hydroCHLORO Yes 25mg Take 25 mg Univers thiazide 25 1-09 by mouth ity of mg tablet 17:13: daily. [address] METOPROLOL Yes 50mg Take 50 mg U nivers SUCCINATE 1-09 by mouth. ity o f ORAL 17:13: [place] 29 Medical Branch levothyroxi Yes 50ug Take 50 Uni vers ne 1-09 mcg by ity of (SYNTHROID) 17:13: mouth [place] 50 mcg 29 every Medical tablet morning. Branch amLODIPine Yes 10mg Take 10 mg U nivers 10 mg 1-09 by mouth ity of tablet 17:13: daily. [address] amlodipine amlodipine No 1 Q1D amlodipine [facility] 10 mg 10 mg 10 mg Family [...] route. levothyroxi levothyroxi No 1 Q1D levothyrox [facility] ne 50 mcg ne 50 mcg ine 50 mcg Family tablet Take tablet Take tablet Practic 1 tablet 1 tablet Take 1 e every day every day tablet by oral by oral every day route as route as by oral directed directed route as for 30 for 30 directed days. days. for 30 days. metoprolol metoprolol No 1 Q1D metoprolol [facility] succinate succinate succinate Family ER 25 mg ER 25 mg ER [...] 3 500 No 1capsul Q1D omega 3 Village mg-dha-epa- mg-dha-epa- e(s) 500 F amily B12 [...] route. rosuvastati rosuvastati No 1 Q1D rosuvastat [facility] n 10 mg n 10 mg in 10 mg Famil y tablet Take tablet Take tablet Practic 1 tablet 1 tablet Take 1 e every day every day tablet by oral by oral every day route. route. by oral route. Immunizations Ordered Filled Immunization Date Status Comments [facility] e Immunization Name Name SARS-COV-2 COVID-19 2020-07-17 Completed Unive rsity of MODERNA VACCINE 00:00:00 [facility] SARS-COV-2 COVID-19 2020-06-19 Completed Unive rsity of MODERNA VACCINE 00:00:00 [facility] influenza, influenza, 2020-04-[address] [facility] injectable, injectable, 00:00:00 Practice quadrivalent quadrivalent Vital Signs Vital Name Observation Time Observation Value Comments Source BP Diastolic 2020-05-17 00:00:00 80 mm[Hg] [facility] Height 2020-05-17 00:00:00 65 [in_i] [facility] BMI (Body Mass 2020-05-17 00:00:00 32.4 kg/m2 [facility] e Family Index) Practice BP Systolic 2020-05-17 00:00:00 140 mm[Hg] [facility] Body Weight 2020-05-17 00:00:00 195 [lb_av] [facility] Systolic blood 2020-01-13 13:33:00 131 mm[Hg] Univer sity of pressure [facility] Diastolic blood 2020-01-13 13:33:00 81 mm[Hg] Unive rsity of pressure [facility] Heart rate 2020-01-13 13:33:00 79 /min [facility] Body height 2020-01-13 13:33:00 167.6 cm [facility] Body weight 2020-01-13 13:33:00 89.812 kg [facility] BMI 2020-01-13 13:33:00 31.96 kg/m2 [facility] Systolic blood 2020-01-13 13:33:00 131 mm[Hg] Univer sity of pressure [facility] Diastolic blood 2020-01-13 13:33:00 81 mm[Hg] Unive rsity of pressure [place] [facility] Heart rate 2020-01-13 13:33:00 79 /min Universi ty of [place] [facility] Body height 2020-01-13 13:33:00 167.6 cm Universi ty of [place] [facility] Body weight 2020-01-13 13:33:00 89.812 kg Universi ty of [place] [facility] BMI 2020-01-13 13:33:00 31.96 kg/m2 Universi ty of [place] [facility] Systolic blood 2019-12-11 15:20:00 151 mm[Hg] Univer sity of pressure [place] [facility] Diastolic blood 2019-12-11 15:20:00 80 mm[Hg] Unive rsity of pressure [place] [facility] Heart rate 2019-12-11 15:20:00 93 /min Universi ty of [place] [facility] Body height 2019-12-11 15:20:00 167.6 cm Universi ty of [place] [facility] Body weight 2019-12-11 15:20:00 90.719 kg Universi ty of [place] [facility] BMI 2019-12-11 15:20:00 32.28 kg/m2 Universi ty of [place] [facility] Systolic blood 2018-12-09 19:00:00 142 mm[Hg] Univer sity of pressure [place] [facility] Diastolic blood 2018-12-09 19:00:00 83 mm[Hg] Unive rsity of pressure [place] [facility] Heart rate 2018-12-09 19:00:00 76 /min Universi ty of [place] [facility] Respiratory rate 2018-12-09 19:00:00 18 /min Univ ersity of [facility] Branch Body height 2018-12-09 19:00:00 165.1 cm Universi ty of [place] [facility] Body weight 2018-12-09 19:00:00 89.359 kg Universi ty of [place] [facility] BMI 2018-12-09 19:00:00 32.78 kg/m2 Universi ty of [facility] Branch Procedures Procedure Date / Time Performing Clinician Source Performed AUTHORIZATION FOR RELEASE 2021-08-10 05:01:00 Doctor Unassigned, University [facility] OF [facility] INSURANCE CORRESPONDENCE 2019-12-26 05:01:00 Doctor Unassigned, [facility] XR KNEE 3 VW LEFT 2019-12-11 15:07:07 Mcdaniel, Shen cline of [facility] REFERRAL- 2019-12-08 05:01:00 Doctor Unassigned, [facility] REQUEST/RESPONSE [place] [facility] Branch XR KNEE <3 VW RIGHT 2018-12-09 19:02:49 Shen Mcdaniely [facility] REFERRAL- 2018-12-03 05:01:00 Doctor Unadiogenes, [facility] REQUEST/RESPONSE [place] [facility] Mastectomy of Right 2005-05-15 00:00:[address] [facility] Breast Practice Clipping of Intracranial [facility] Aneurysm Practice Plan of Care Planned Activity Planned Date Details Comments Source Instructions [facility] Encounters Start End Encounter Admission Attending Care Care Encounter Source Date/Time Date/Time Type Type Clinicians Facility Department ID 2021-08-10 2021-08-10 Orders Doctor SUNSHINE 1.2.840.114 [id number] Univers 00:00:00 00:00:00 Only Unassigned, MAHNAZ [id number] ity of [place] [facility] 4.2.7.2.686 Luis as [id number] [address] 2020-10-20 2020-10-20 Outpatient Miller_S_AH VFP VFP [id number] [facility] 12:22:00 12:22:00 [id number] Family Practic e 2020-09-29 2020-09-29 Outpatient Georgi-Mbayo VFP VFP [id number] [facility] 08:21:00 08:21:00 _A_AH [id number] Family Practic e 2020-07-17 2020-07-17 Outpatient [facility] [id number] Univers 14:50:00 14:50:00 ity [facility] 2020-07-15 2020-07-15 Outpatient Georgi-Mbayo VFP VFP [id number] [facility] 10:21:00 10:21:00 _A_AH [id number] Family Practic e 2020-07-15 2020-07-15 Outpatient Georgi-Mbayo VFP VFP [id number] [facility] 10:21:00 10:21:00 _A_AH [id number] Family Practic e 2020-06-19 2020-06-19 Outpatient Immanuel KELLER, [facility] [id number] Univers 15:30:00 15:30:00 BRUNO ity [facility] 2020-05-17 2020-05-17 Outpatient Georgi-Neryo VFP VFP [id number] 10:58:00 10:58:00 _A_AH [id number] Family Practic e 2020-05-17 2020-05-17 Darling VFP [place] - [id number] V illage 00:00:00 00:00:00 Magdy [facility] 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 2020-03-02 2020-03-02 [facility] 1.2.840.114 [id number] Univers 00:00:00 00:00:00 [facility] [id number] it y of Surgical [id number] Luis as Specialti [id number] In dical es 198 [facility] 2020-01-13 2020-01-13 Office [facility] 1.2.840.114 [id number] Univers 08:24:11 08:39:11 Visit [facility] [id number] it y of Surgical 4.2.7.2.686 Luis as Specialti [id number] In dical es 198 [facility] 2020-01-13 2020-01-13 Office [facility] 1.2.840.114 [id number] 08:24:11 08:39:11 Visit [facility] [id number] Surgical 4.2.7.2.686 Specialti [id number] es 198 [place] 2020-01-13 2020-01-13 [facility] [id number] Univers 08:30:00 08:30:00 LEE ANN ity of [facility] 2019-12-31 2019-12-31 Telephone [facility] 1.2.840.114 [id number] Univers 00:00:00 00:00:00 Shen [facility] [id number] it y of Surgical 4.2.7.2.686 Luis as Specialti [id number] In dical es 198 [facility] 2019-12-26 2019-12-26 Orders Doctor BITA 1.2.840.114 [id number] Univers 00:00:00 00:00:00 Only Unassigned, MAHNAZ [id number] ity of [place] [facility] 4.2.7.2.686 Luis as [id number] [address] 2019-12-26 2019-12-26 Orders Doctor BITA 1.2.840.114 [id number] 00:00:00 00:00:00 Only Unassigned, MAHNAZ [id number] [place] [facility] 4.2.7.2.686 [id number] [facility] 2019-12-25 2019-12-25 Telephone [facility] 1.2.840.114 [id number] Univers 00:00:00 00:00:00 Shen [facility] [id number] it y of Surgical 4.2.7.2.686 Luis as Specialti [id number] In dicmt es 198 [facility] 2019-12-24 2019-12-24 Telephone [facility] 1.2.840.114 [id number] Univers 00:00:00 00:00:00 Shen [facility] [id number] it y of Surgical 4.2.7.2.686 Luis as Specialti [id number] In dicailyn es 198 [facility] 2019-12-11 2019-12-11 [facility] 1.2.840.114 [id number] Univers 09:35:00 23:59:00 Encounter Shen Matthews [id number] ity of [place]2.7.2.686 [place] [id number] [facility] 807 [place] 2019-12-11 2019-12-11 Office [facility] [id number] Univers 10:14:11 10:57:50 Visit Shen Carrasquillo 350.1.13.10 it y of Surgical 4.2.7.2.686 Luis as Specialti [id number] In dical es 198 [facility] 2019-12-11 2019-12-11 Outpatient R [facility] [id number] Univers 10:15:00 10:15:00 SHEN ity of [facility] 2019-12-10 2019-12-10 Telephone [facility] 1.2.840.114 [id number] Univers 00:00:00 00:00:00 Shen Carrasquillo 350.1.13.10 it y of Surgical 4.2.7.2.686 Luis as Specialti [phone] In shabbirailyn es 198 [facility] 2019-12-08 2019-12-08 Orders Doctor BITA 1.2.840.114 [id number] Univers 00:00:00 00:00:00 Only Unassigned, MAHNAZ 350.1.13.10 ity of [place] 4.2.7.2.686 Luis as [id number] [facility] 009 [place] 2019-07-02 2019-07-02 Outpatient [facility] [id number] [facility] 07:14:00 07:14:00 _A_ [id number] Family Practic e 2018-12-09 2018-12-09 Hospital [facility] 1.2.840.114 [id number] Univers 14:02:48 23:59:00 Encounter Shen Carrasquillo 350.1.13.10 ity of Surgical 4.2.7.2.686 Luis as Specialti [id number] In dical es 809 [facility] 2018-12-09 2018-12-09 Office [facility] [id number] Univers 13:41:33 14:27:53 Visit Shen Carrasquillo 350.1.13.10 it y of Surgical 4.2.7.2.686 Luis as Specialti [id number] In dical es 198 Branch [place] 2018-12-03 2018-12-03 Orders Doctor BITA 1.2.840.114 [id number] Univers 00:00:00 00:00:00 Only Unassigned, MAHNAZ 350.1.13.10 ity of [facility] 4.2.7.2.686 Luis as [id number] [facility] 009 Branch Results Test Description Test Time Test Comments Results Result [facility] e Comments XR KNEE 3 2019-11-14 HISTORY: ?Pain. Univers ity of LEFT 0 FINDINGS: Standing [facility] 15:10:08 AP and lateral Branch views of left knee showed no acutefracture or dislocation. No significant changes of arthritis or aggressivebone lesions seen. No significant knee joint effusion. CONCLUSIONS: No acute fracture or dislocation in left knee. [facility], Radiant Results Inft User - 12/11/2019 10:11 AM CDTHISTORY: Pain.FINDINGS: Standing AP and lateral views of left knee showed no acutefracture or dislocation. No significant changes of arthritis or aggressivebone lesions seen. No significant knee joint effusion.CONCLUSION S: No acute fracture or dislocation in left knee. XR KNEE <3 2018-11-12 Bone on bone Universit y of RIGHT 9 osteoarthritis [facility] 20:22:26 Branch
[2022-07-21 21:09] LABS: Absolute Lymphocytes (CBC) 2.7 K/uL (0.7-4.9); Lymphocytes % 28.1 % (15.3-44.8); MCV 89.6 fL (80-100); MPV 9.5 fL (7.6-11.3); RBC Red Blood Cell Count 4.46 M/uL (3.86-4.86)
[2022-07-21 21:28] LABS: Potassium 3.5 mmol/L (3.5-5.1); Troponin High Sensitivity 14.9 pg/mL (<58.9)
[2022-07-22 02:56] VITALS: TEMP 97.8
[2022-07-22 03:00] VITALS: BP 154/88; O2SAT 99
--- NOTE | 2022-07-24 13:11 | EKG ---
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
--- NOTE | 2022-08-04 16:25 | ER ---
Nurse's Notes [facility] Name: Berenice Chatman Age: 72 yrs Sex: Female : 1950 Arrival Date: 07/21/2022 Time: 17:30 Bed 14 Private MD: Diagnosis: Hypertensive heart disease without heart failure Presentation: 07/21 17:54 Chief complaint: EMS states: Pt hx of HTN, takes multiple BP medications, this morning ph BP was high 150s systolic, checked again this afternoon and it was high again so she attempted to go to her doctor who was closed so she went to EMS station instead. BP for EMS 180s systolic, pt also states that she was stressed earlier because her dog got out. Pt asymptomatic, denies headache, dizziness or blurred vision. Coronavirus screen: Vaccine status: Patient reports receiving the 2nd dose of the covid vaccine. Ebola Screen: No symptoms or risks identified at this time. Initial Sepsis Screen: Does the patient meet any 2 criteria? No. Patient's initial sepsis screen is negative. Does the patient have a suspected source of infection? No. Patient's initial sepsis screen is negative. Risk Assessment: Do you want to hurt yourself or someone else? Patient reports no desire to harm self or others. Onset of symptoms was July 21, 2022. 17:54 Acuity: ASHLEY 3 ph 17:54 Method Of Arrival: EMS: [facility] T[facility] Assessment: 22:09 General: Appears in no apparent distress. Behavior is calm, cooperative. kl Historical: - Allergies: 17:51 Lisinopril; ph - Home Meds: 17:51 levothyroxine oral [Active]; valsartan oral [Active]; metoprolol er [Active]; ph amlodipine oral [Active]; - PMHx: 17:51 Aneurysm; Hypertensive disorder; Hypothyroidism; ph - Immunization history:: Adult Immunizations unknown. - Social history:: Smoking status: Patient denies any tobacco usage or history of. Screenin:41 [facility] ED Fall Risk Assessment (Adult) History of falling in the last 3 months, kl including since admission No falls in past 3 months (0 pts) Confusion or Disorientation No (0 pts) Intoxicated or Sedated No (0 pts) Impaired Gait No (0 pts) Mobility Assist Device Used No (0 pt) Altered Elimination No (0 pt) Score/Fall Risk Level 0 - 2 = Low Risk. 20:41 Abuse screen: Denies threats or abuse. Nutritional screening: No deficits noted. kl Tuberculosis screening: No symptoms or risk factors identified. Assessment: 20:40 Reassessment: Patient appears in no apparent distress at this time. Patient is alert, kl oriented x 3, equal unlabored respirations, skin warm/dry/pink. Patient denies pain at this time. Patient states feeling better. Pain: Denies pain. Cardiovascular: No deficits noted. 22:08 Reassessment: Patient appears in no apparent distress at this time. Patient is alert, kl oriented x 3, equal unlabored respirations, skin warm/dry/pink. Patient denies pain at this time. Patient states symptoms have improved. Vital Signs: 17:54 BP 162 / 70; Pulse 78; Resp 18; Temp 97.8; Pulse Ox 100% ; Weight 88.9 kg; Height 5 ft. ph 7 in. ; 20:40 BP 162 / 82; Pulse 84; Pulse Ox 100% on R/A; kl 22:08 BP 154 / 88; Pulse 72; Resp 16; Pulse Ox 99% on R/A; kl 17:54 Body Mass Index 30.70 (88.90 kg, 170.18 cm) ph ED Course: 17:30 Patient arrived in ED. [email or web address] 17:46 Luis Daniel Ramachandran PA is PHCP. [facility] 17:46 Lenny Willis MD is Attending Physician. [facility] 17:54 Arm band placed on. ph 18:01 Triage completed. 20:33 PHCP role handed off by Luis Daniel Ramachandran PA cp 20:33 Brian Zhang PA is PHCP. cp 20:40 Missed attempt(s): 22 gauge in left wrist. kl 22:09 Patient has correct armband on for positive identification. kl 22:09 No provider procedures requiring assistance completed. Patient did not have IV access kl during this emergency room visit. Administered Medications: No medications were administered Medication: 22:07 VIS not applicable for this client. kl Outcome: 22:01 Discharge ordered by . cp 22:08 Discharged to home ambulatory, with family. kl 22:08 Condition: stable 22:08 Discharge instructions given to patient, Instructed on discharge instructions, follow up and referral plans. Demonstrated understanding of instructions, follow-up care. 22:09 Patient left the ED. kl Signatures: Mickie Burroughs RN RN kl Mickail, Joel, PA PA jmm Hall, Patricia, RN RN Leatha, MARIANNA Torres cp, Jennifer [email or web address]
--- NOTE | 2022-08-04 16:26 | EDPHYS ---
Physician Documentation [facility] Name: Berenice Chatman Age: 72 yrs Sex: Female : 1950 Arrival Date: 07/21/2022 Time: 17:30 Bed 14 Private MD: ED Physician Lenny Willis HPI: 07/21 18:06 This 72 yrs old Black Female presents to ER via EMS with complaints of High Blood jm Pressure. 18:06 Onset: The symptoms/episode began/occurred gradually. Modifying factors:. Is a jmm 72-year-old female with history of hypertension hypothyroidism the presents emerged department with complaints of elevated blood pressure also complains of lightheadedness/fatigue. Patient denies any chest pain or headache. Patient became anxious when she noticed her blood pressure was elevated at home.. Historical: - Allergies: 17:51 Lisinopril; ph - Home Meds: 17:51 levothyroxine oral [Active]; valsartan oral [Active]; metoprolol er [Active]; ph amlodipine oral [Active]; - PMHx: 17:51 Aneurysm; Hypertensive disorder; Hypothyroidism; ph - Immunization history:: Adult Immunizations unknown. - Social history:: Smoking status: Patient denies any tobacco usage or history of. ROS: 18:06 Constitutional: Negative for fever, chills, and weight loss, Cardiovascular: Negative jmm for chest pain, palpitations, and edema, Respiratory: Negative for shortness of breath, cough, wheezing, and pleuritic chest pain. 18:06 All other systems are negative. Exam: 18:06 Constitutional: This is a well developed, well nourished patient who is awake, alert, jmm and in no acute distress. Head/Face: atraumatic. Eyes: EOMI, no conjunctival erythema appreciated ENT: Moist Mucus Membranes Neck: Trachea midline, Supple Chest/axilla: Normal chest wall appearance and motion. Cardiovascular: Regular rate and rhythm. No edema appreciated Respiratory: Normal respirations, no respiratory distress appreciated Abdomen/GI: Non distended Back: Normal ROM Skin: General appearance color normal MS/ Extremity: Moves all extremities, no obvious deformities appreciated, no edema noted to the lower extremities Neuro: Awake and alert Psych: Behavior is normal, Mood is normal, Patient is cooperative and pleasant 19:40 ECG was reviewed by the Attending Physician. cp Vital Signs: 17:54 BP 162 / 70; Pulse 78; Resp 18; Temp 97.8; Pulse Ox 100% ; Weight 88.9 kg; Height 5 ft. ph 7 in. ; 20:40 BP 162 / 82; Pulse 84; Pulse Ox 100% on R/A; kl 22:08 BP 154 / 88; Pulse 72; Resp 16; Pulse Ox 99% on R/A; kl 17:54 Body Mass Index 30.70 (88.90 kg, 170.18 cm) ph MDM: 18:34 Patient medically screened. [facility] 22:00 Data reviewed: vital signs, nurses notes, lab test result(s), EKG. 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 Consideration of Admission/Observation Escalation of care including admission/observation considered. Test considered but Not performed: CT: head. Care significantly affected by the following chronic conditions: Hypertension. Counseling: I had a detailed discussion with the patient and/or guardian regarding: the historical points, exam findings, and any diagnostic results supporting the discharge/admit diagnosis, lab results, the need for outpatient follow up, a family practitioner, to return to the emergency department if symptoms worsen or persist or if there are any questions or concerns that arise at home. 07/21 18:06 Order name: Basic Metabolic Panel; Complete Time: 21:54 [facility] 07/21 21:54 Interpretation: Normal except: GFR 58. 07/21 18:06 Order name: CBC with Diff; Complete Time: 21:24 [facility] 07/21 21:25 Interpretation: Normal except: EOSINOPHIL % 4.6. 07/21 18:06 Order name: Troponin HS; Complete Time: 21:54 [facility] 07/21 18:06 Order name: EKG; Complete Time: 18:06 [facility] 07/21 18:06 Order name: EKG - Nurse/Tech [facility] 07/21 18:06 Order name: IV Saline Lock [facility] 07/21 18:06 Order name: Labs collected and sent [facility] EC:40 Rate is 73 beats/min. Rhythm is regular. CO interval is normal. QRS interval is normal. T waves are Inverted in lead aVR. Interpreted by me. Reviewed by me. Administered Medications: No medications were administered Disposition Summary: 07/21/22 22:01 Discharge Ordered Location: Home cp Problem: chronic cp Symptoms: have improved cp Condition: Stable cp Diagnosis - Hypertensive heart disease without heart failure cp Followup: cp - With: Private Physician - When: 2 - 3 days - Reason: Recheck today's complaints Discharge Instructions: - Discharge Summary Sheet cp - Hypertension, Adult cp - Aspirin and Your Heart cp - DASH Eating Plan cp - Form - Blood Pressure Record Sheet cp - How to Take Your Blood Pressure cp Forms: - Medication Reconciliation Form cp - Thank You Letter cp - Antibiotic Education cp - Prescription Opioid Use cp Addendum: 07/24/2022 08:42 Co-signature as Attending Physician, Lenny Willis MD I reviewed the patient's care r n provided by the Advanced Practice Provider and agree with the diagnosis and treatment plan. Signatures: Dispatcher [employer] Luis Daniel Pham PA PA jmm Nieto, Roman, MD MD rn Hall, Patricia, RN RN ph Brian Zhang PA PA cp
== END 2022-07-21 22:09 | disposition home or self-care (01) ==
LOC: ER 17:27
DX: I11.9 Hypertensive heart disease without heart failure (principal); I10 Essential (primary) hypertension; E03.9 Hypothyroidism, unspecified; Z88.8 Allergy status to other drugs, medicaments and biological substances
CPT/HCPCS: 36415; 80048; 84484; 85025; 93005; 99283

== ENCOUNTER 2023-12-31 09:17 | Day surgery (SDC) | payer OTHER ==
[2023-12-31] MEDS ORDERED: Ringers Lactate 1,000 ML IV ONE (09:23)
[2023-12-31] MEDS ORDERED: LIDOCAINE 1% MPF 5 ML VIAL ONE ×2 (10:06→11:05)
[2023-12-31] MEDS ORDERED: FENTANYL CITR 100 MCG/2 ML ONE (10:06)
[2023-12-31] MEDS ORDERED: dexAMETHasone 4 MG/ML VIAL ONE (10:07)
[2023-12-31] MEDS ORDERED: EPINEPHRINE 1 MG/ML VIAL ONE (10:07)
[2023-12-31] MEDS ORDERED: MIDAZOLAM HCL 2 MG/2 ML INJ ONE (10:08)
[2023-12-31 10:12] LABS: Absolute Basophils 0.1 K/uL (0-0.5); Absolute Eosinophils 0.4 K/uL (0-0.5); Absolute Monocytes 0.7 K/uL (0.1-1.3); Absolute Neutrophil 3.8 K/uL (1.8-8.0); Eosinophils % 6.2 % (0-4.4); Hematocrit 33.9 % (36.0-45.0); Hemoglobin 10.9 g/dL (12.0-15.0); Lymphocytes % 28.1 % (15.3-44.8); MCH 29.1 pg (27.0-35.0); MCHC 32.1 g/dL (32.0-36.0); MCV 90.7 fL (80-100); MPV 10.2 fL (7.6-11.3); Monocytes % 10.6 % (3.3-12.3); Neutrophils % 54.1 % (41.7-73.7); Nucleated Red Blood Cells % 0.1 % (0-0); Platelets 224 thou/uL (152-406); RBC Red Blood Cell Count 3.74 M/uL (3.86-4.86); Red Cell Distribution Width 13.9 % (12.1-15.2)
[2023-12-31 10:25] LABS: Anion Gap 6.4 mEq/L (5.0-15.0); Potassium 3.4 mEq/L (3.5-5.1)
[2023-12-31] MEDS ORDERED: propofoL 200 MG/20 ML VIAL IV ONE (11:05)
[2023-12-31] MEDS ORDERED: ONDANSETRON 4 MG/2 ML VIAL ONE (11:05)
[2023-12-31] MEDS: CEFAZOLIN SODIUM 1 GM/VIAL ONE (11:35)
--- NOTE | 2023-12-31 13:04 | RAD REPORT ---
EXAM DESCRIPTION: RAD - Fluoroscopy <1 Hour - 12/31/2023 12:46 pm CLINICAL HISTORY: ORIF RT ANKLE COMPARISON: None available. FINDINGS: Five Images were sent to PACS, documenting fluoroscopy use during an image guided right an kle open reduction and internal fixation procedure. No radiologist was available for the procedure, n or will any image interpretation he provided. Please refer to the procedural report for additional de tails. Fluoroscopy time: 0.3 Minutes. IMPRESSION: Documentation of fluoroscopy utilization as above.
[2023-12-31 14:11] VITALS: BP 158/85; TEMP 97.6; O2SAT 97
--- NOTE | 2023-12-31 23:36 | OP ---
Date of Procedure: 12/31/2023 Surgeon: Shant Mosley MD Preoperative Diagnosis: Right displaced lateral malleolus fracture with widening of medial clear spa ce. Postoperative Diagnosis: Right displaced lateral malleolus fracture with widening of medial clear sp juan. Procedure: Right ankle lateral malleolus open reduction and internal fixation using the Acumed ankle plating system. Estimated Blood Loss: Less than 20 cc. Complications: There were no complications. Indications For Operation: Ms. Chamtan is a 73-year-old female who unfortunately injured her right ankle. She came to see me in my office, where x-rays were reviewed, which revealed a displaced fibul ar fracture with some widening of the medial clear space, definitely highly displaced lateral malleol us fracture. She had been walking in a fracture boot. Risks, benefits, and alternatives of differen t methods of treating this have been discussed with the patient. She states she understands things a s presented and wishes to proceed. Description Of Procedure: The patient was taken to the operating room and placed in supine position. She previously had a block done in the holding area. Her right lower extremity was then prepped an d draped in the usual sterile fashion for the procedure. After this, it was then elevated, but not e xsanguinated and a tourniquet was raised. A standard lateral approach to the ankle was then taken do wn carefully through skin and soft tissues. Meticulous hemostasis being maintained using Bovie elect rocautery, although there was not excessive bleeding. The fracture site was identified and gently cl eared from debris. It was somewhat mobile, although it did appear to be partially healed, this now b eing 16 days old. We were able to clear the fracture site; however, it was difficult to clamp with a ppropriate length. Therefore, the decision was made to use the Acumed locking system and was applied to the distal fragment first. The plate was then used to apply traction as well as compression, as the remainder of the proximal screws were then placed. It demonstrates a near anatomic reduction wit h closure of the medial clear space. The wound was then copiously irrigated, and the skin was closed using interrupted 2-0 Vicryl sutures, followed by j carlos. The patient was then placed in extremely well-padded sterile dressing as well as a posterior splint with the U, awakened and taken to the rec overy room in good condition. There were no complications. /SPENCER Voice ID: [id number] Report ID: [id number]
--- NOTE | 2024-01-01 18:03 | EKG ---
Test Date: 2023-12-27 Test Time: 15:06:40 Piano Sounding Board Matcher: ROSALIA MEASUREMENT RESULTS: Intervals: Rate: 68 ME: 190 QRSD: 98 QT: 398 QTc: 423 [place]: P: 55 ME: 190 QRS: 12 T: 74 INTERPRETIVE STATEMENTS: Normal sinus rhythm Possible Left atrial enlargement Borderline ECG Compared to ECG 07/21/2022 19:35:02 Atrial premature complex(es) no longer present Electronically Signed On 01-01-24 17:52:19 CDT by Kemal Sewell
== END 2023-12-31 14:08 | disposition home or self-care (01) ==
LOC: OR 09:17
PROVIDERS: ATTEND Orthopaedic Surgery
PROC: 0QSJ04Z Reposition Right Fibula with Internal Fixation Device, Open Approach (ICD-10-PCS; principal; 2023-12-31 11:30)
DX: S82.61XA Displaced fracture of lateral malleolus of right fibula, initial encounter for closed fracture (principal); I10 Essential (primary) hypertension; Z85.3 Personal history of malignant neoplasm of breast
CPT/HCPCS: 93005; 85025; 80048; 36415; 27792; C1713; J2704; J1100; J2001 ×2; J2250; J3010; J0171; J2405; J7120; J0690; 76000

== ENCOUNTER 2024-09-16 13:08 | Emergency (ER) | payer OTHER ==
--- OUTSIDE RECORDS SUMMARY | 2024-09-16 13:11 | XMS REPORT | Continuity of Care Document ---
Author Name Unknown Address [address] [facility] [address] [place] [address] [facility] Address [address] 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 Name Role Phone John Bales Primary Care Physician [phone] Chrissy Castañeda Attending Clinician + MONICA GARCIA Attending Clinician Unavailable Monica Liriano Attending Clinician [phone] Unknown, Attending Attending Clinician Unavailab le Doctor Unassigned, [place] Attending Clinician U navailable Antonino_S_AH Attending Clinician Unavailable Georgi-Krystleayo_A_AH Attending Clinician Unavailable BRUNO KELLER Attending Clinician Unavailable Lee Ann Ch Attending Clinician [phone] LEE ANN PLATT Attending Clinician Unavailable Shen Kelly MD Attending Clinician [phone] SHEN KELLY Attending Clinician Unavailabl e Antonino_S_AH Admitting Clinician Unavailable Georgi-Mbayo_A_AH Admitting Clinician Unavailable Payers Payer Name Policy Type Policy Number Effective Date Expirati on Date Source [facility]ADVANT AGE - HMO) [id number] 2019 00:00:00 Problems Condition Name Condition Details Condition Category Status Onset Date Resolution Date Last Treatment Date Treating Clinician Comments Source Hyperchole sterolemia Hyperchole sterolemia Problem Active 05-17 00:00: 00 [facility] Fra[facility] Frailty Problem Active 2019-05 00:00: 00 [facility] Hypothyroi dism Hypothyroi dism Problem Active 07-22 00:00: 00 [facility] Essential hypertensi on Essential Hypertensi on Problem Active 07-22 00:00: 00 [facility] No known active problems No known active problems Disease [facility] Allergies, Adverse Reactions, Alerts Allergy Name Allergy Type Status Severity Reaction(s) Onset Date Inactive Date Treating Clinician Comments Source NO KNOWN ALLERGIE S Drug Class Active [facility] Social History Social Habit Start Date Stop Date Quantity Comments [facility] to [facility]2 (event) Not sure [facility] Alcoholic beverage intake 2023-12-22 00:00:00 2023-12-22 00:00:00 Current non-drinker of alcohol (finding) [facility] Tobacco use and exposure 2023-12-22 00:00:00 2023-12-22 00:00:00 Smokeless tobacco non-user [facility] History of Social function 2020-01-13 00:00:00 2020-01-13 00:00:00 [facility] Alcohol intake 2020-01-13 00:00:00 2020-01-13 00:00:00 Current non-drinker of alcohol (finding) [facility] Sex assigned at 1950 00:00:00 1950 00:00:00 [facility] Smoking Status Start Date Stop Date Source Never smoked tobacco [facility] Medications Ordered Medication Name Filled Medication Name Start Date Stop Date Current Medication? Ordering Clinician Indication Dosage Frequency Signature (SIG) Comments Components Source valsartan-h ydrochlorot hiazide 160-25 mg per tablet 12-21 17:44: 14 Yes 1{tbl} Take 1 tablet by mouth in the morning. [facility] rosuvastati n 10 mg tablet 12-21 17:44: 14 Yes 10mg Take 1 tablet by mouth at bedtime. [facility] SERTraline 25 mg tablet 12-21 17:44: 14 Yes 25mg Take 1 tablet by mouth at bedtime. [facility] amLODIPine 10 mg tablet 12-21 17:43: 16 12-21 00:00 :00 No 10mg Take 10 mg by mouth daily. [facility] hydroCHLORO thiazide 25 mg tablet 12-21 17:43: 16 12-21 00:00 :00 No 25mg Take 25 mg by mouth daily. [facility] METOPROLOL SUCCINATE ORAL 12-21 17:43: 16 12-21 00:00 :00 No 50mg Take 50 mg by mouth. [facility] amLODIPine 5 mg tablet 12-11 00:00: 00 Yes 5mg Take 1 tablet by mouth in the morning. [facility] carvediloL 12.5 mg tablet 11-25 00:00: 00 Yes 12.5mg Take 1 tablet by mouth in the morning and 1 tablet in the evening. Take with meals. [facility] MELOXICAM 7.5 mg tablet 2019-05 00:00: 00 Yes [id number] Take 1 tablet by mouth once daily [facility] meloxicam 7.5 mg tablet 01-12 00:00: 00 03-03 00:00 :00 No [id number] 7.5mg Take 1 tablet by mouth daily. [facility] amLODIPine 10 mg tablet 12-09 19:07: 15 Yes 10mg Take 10 mg by mouth daily. [facility] hydroCHLORO thiazide 25 mg tablet 12-09 19:07: 15 Yes 25mg Take 25 mg by mouth daily. [facility] METOPROLOL SUCCINATE ORAL 12-09 19:07: 15 Yes 50mg Take 50 mg by mouth. [facility] levothyroxi ne (SYNTHROID) 50 mcg tablet 12-09 19:07: 15 Yes 50ug Take 50 mcg by mouth every morning. [facility] amLODIPine 10 mg tablet 12-09 14:07: 15 Yes 10mg Take 10 mg by mouth daily. [facility] hydroCHLORO thiazide 25 mg tablet 12-09 14:07: 15 Yes 25mg Take 25 mg by mouth daily. [facility] METOPROLOL SUCCINATE ORAL 12-09 14:07: 15 Yes 50mg Take 50 mg by mouth. [facility] levothyroxi ne (SYNTHROID) 50 mcg tablet 12-09 14:07: 15 Yes 50ug Take 50 mcg by mouth every morning. [facility] diclofenac 75 mg EC tablet 12-09 00:00: 00 Yes [id number] 75mg Take 1 tablet by mouth 2 (two) times daily with meals. [facility] hydroCHLORO thiazide 25 mg tablet 05-22 17:13: 29 Yes 25mg Take 25 mg by mouth daily. [facility] METOPROLOL SUCCINATE ORAL 05-22 17:13: 29 Yes 50mg Take 50 mg by mouth. [facility] levothyroxi ne (SYNTHROID) 50 mcg tablet 05-22 17:13: 29 Yes 50ug Take 50 mcg by mouth every morning. [facility] amLODIPine 10 mg tablet 05-22 17:13: 29 Yes 10mg Take 10 mg by mouth daily. [facility] amlodipine 10 mg tablet Take 1 tablet every day by oral route as directed for 30 days. amlodipine 10 mg tablet Take 1 tablet every day by oral route as directed for 30 days. No 1 Q1D amlodipine 10 mg tablet Take 1 tablet every day by oral route as directed for 30 days. [facility] Centrum Silver Centrum Silver No Centrum Silver [facility] levothyroxi ne 50 mcg capsule Take 1 capsule every day by oral route. levothyroxi ne 50 mcg capsule Take 1 capsule every day by oral route. No 1capsul e(s) Q1D levothyrox ine 50 mcg capsule Take 1 capsule every day by oral route. [facility] levothyroxi ne 50 mcg tablet Take 1 tablet every day by oral route as directed for 30 days. levothyroxi ne 50 mcg tablet Take 1 tablet every day by oral route as directed for 30 days. No 1 Q1D levothyrox ine 50 mcg tablet Take 1 tablet every day by oral route as directed for 30 days. [facility] metoprolol succinate ER 25 mg tablet,exte nded release 24 hr Take 1 tablet every day by oral route as directed for 30 days. metoprolol succinate ER 25 mg tablet,exte nded release 24 hr Take 1 tablet every day by oral route as directed for 30 days. No 1 Q1D metoprolol succinate ER 25 mg tablet,ext ended release 24 hr Take 1 tablet every day by oral route as directed for 30 days. [facility] omega 3 500 mg-dha-epa- B12 500 mcg-FA 1 mg-B6 12.5 mg-phytoste rol cap Take 1 capsule every day by oral route. omega 3 500 mg-dha-epa- B12 500 mcg-FA 1 mg-B6 12.5 mg-phytoste rol cap Take 1 capsule every day by oral route. No 1capsul e(s) Q1D omega 3 500 mg-dha-epa -B12 500 mcg-FA 1 mg-B6 12.5 mg-phytost price cap Take 1 capsule every day by oral route. [facility] rosuvastati n 10 mg tablet Take 1 tablet every day by oral route. rosuvastati n 10 mg tablet Take 1 tablet every day by oral route. No 1 Q1D rosuvastat in 10 mg tablet Take 1 tablet every day by oral route. [facility] Immunizations Ordered Immunization Name Filled Immunization Name Date Status Comments Source SARS-COV-2 COVID-19 MODERNA VACCINE 2020-07-17 00:00:00 Completed [facility] SARS-COV-2 COVID-19 MODERNA VACCINE 2020-06-19 00:00:00 Completed [facility] influenza, injectable, quadrivalent influenza, injectable, quadrivalent 2020-04-13 00:00:00 Completed [facility] SARS-COV-2 COVID-19 MODERNA 12+ YRS VACCINE Unknown Completed [facility] SARS-COV-2 COVID-19 MODERNA 12+ YRS VACCINE Unknown Completed [facility] SARS-COV-2 COVID-19 MODERNA 12+ YRS VACCINE Unknown Completed [facility] SARS-COV-2 COVID-19 MODERNA 12+ YRS VACCINE Unknown Completed [facility] Vital Signs Vital Name Observation Time Observation Value Comments S ource Systolic blood pressure 2023-12-22 22:39:00 157 mm[Hg] [facility] Diastolic blood pressure 2023-12-22 22:39:00 80 mm[Hg] [facility] Heart rate 2023-12-22 22:38:00 67 /min [facility] Body temperature 2023-12-22 22:38:00 36.5 Zainab [facility] Respiratory rate 2023-12-22 22:38:00 18 /min [facility] Body height 2023-12-22 22:38:00 165.1 cm [facility] Body weight 2023-12-22 22:38:00 88.043 kg [facility] BMI 2023-12-22 22:38:00 32.30 kg/m2 [facility] Oxygen saturation in Arterial blood by Pulse oximetry 2023-12-22 22:38:00 97 /min [facility] BP Diastolic 2020-05-17 00:00:00 80 mm[Hg] [facility] Height 2020-05-17 00:00:00 65 [in_i] [facility] BMI (Body Mass Index) 2020-05-17 00:00:00 32.4 kg/m2 [facility] BP Systolic 2020-05-17 00:00:00 140 mm[Hg] [facility] Body Weight 2020-05-17 00:00:00 195 [lb_av] [facility] Systolic blood pressure 2020-01-13 13:33:00 131 mm[Hg] [facility] Diastolic blood pressure 2020-01-13 13:33:00 81 mm[Hg] [facility] Heart rate 2020-01-13 13:33:00 79 /min [facility] Body height 2020-01-13 13:33:00 167.6 cm [facility] Body weight 2020-01-13 13:33:00 89.812 kg [facility] BMI 2020-01-13 13:33:00 31.96 kg/m2 [facility] Systolic blood pressure 2020-01-13 13:33:00 131 mm[Hg] [facility] Diastolic blood pressure 2020-01-13 13:33:00 81 mm[Hg] [facility] Heart rate 2020-01-13 13:33:00 79 /min [facility] Body height 2020-01-13 13:33:00 167.6 cm [facility] Body weight 2020-01-13 13:33:00 89.812 kg [facility] BMI 2020-01-13 13:33:00 31.96 kg/m2 [facility] Systolic blood pressure 2019-12-11 15:20:00 151 mm[Hg] [facility] Diastolic blood pressure 2019-12-11 15:20:00 80 mm[Hg] [facility] Heart rate 2019-12-11 15:20:00 93 /min [facility] Body height 2019-12-11 15:20:00 167.6 cm [facility] Body weight 2019-12-11 15:20:00 90.719 kg [facility] BMI 2019-12-11 15:20:00 32.28 kg/m2 [facility] Systolic blood pressure 2018-12-09 19:00:00 142 mm[Hg] [facility] Diastolic blood pressure 2018-12-09 19:00:00 83 mm[Hg] [facility] Heart rate 2018-12-09 19:00:00 76 /min [facility] Respiratory rate 2018-12-09 19:00:00 18 /min [facility] Body height 2018-12-09 19:00:00 165.1 cm [facility] Body weight 2018-12-09 19:00:00 89.359 kg [facility] BMI 2018-12-09 19:00:00 32.78 kg/m2 [facility] Procedures Procedure Date / Time Performed Performing Clinician Source XR ANKLE 3+ VW RIGHT 2023-12-22 23:19:49 Brittany Garcia [facility] XR FOOT 3+ VW RIGHT 2023-12-22 23:19:40 Monica Garcia [facility] AUTHORIZATION FOR RELEASE OF PHI 2021-08-10 05:01:00 Doctor Unassigned, [place] [facility] INSURANCE CORRESPONDENCE 2019-12-26 05:01:00 Doc tor Unassigned, [place] [facility] XR KNEE 3 VW LEFT 2019-12-11 15:07:07 Shen Kelly [facility] REFERRAL- REQUEST/RESPONSE 2019-12-08 05:01:00 Doctor Unassigned, [place] [facility] XR KNEE <3 VW RIGHT 2018-12-09 19:02:49 Marily Kelly [facility] REFERRAL- REQUEST/RESPONSE 2018-12-03 05:01:00 Doctor Unassigned, [place] [facility] Mastectomy of Right Breast 2005-05-15 00:00:00 [facility] Clipping of Intracranial Aneurysm [facility] Plan of Care Planned Activity Planned Date Details Comments Source Instructions [facility] Practice Encounters Start Date/Time End Date/Time Encounter Type Admission Type Attending Clinicians Care Facility Care Department Encounter ID Source 2024-01-03 00:00:00 2024-01-03 12:17:46 Letter (Out) Chrissy Hernandes [facility] 1.84.114 350.1.13.10 4.2.7.2.686 [id number] [facility] 2023-12-22 18:03:23 2023-12-22 23:59:00 Outpatient R MONICA GARCIA [facility] [id number] [facility] 2023-12-22 18:03:23 2023-12-22 23:59:00 Hospital Encounter Jose [facility] 1.284.114 350.1.13.10 4.2.7.2.686 [id number] [facility] 2023-12-22 18:03:23 2023-12-22 23:59:00 Hospital Encounter [facility] 1.2840.114 350.1.13.10 4.2.7.2.686 [id number] [facility] 2023-12-22 17:20:00 2023-12-22 18:24:27 Urgent Care Monica Garcia Unknown, [facility]ending [facility] 1..840.114 350.1.13.10 4.2.7.2.686 [id number] [facility] 2021-08-10 00:00:00 2021-08-10 00:00:00 Orders Only Doctor Unassigned, [place] [facility] 1..840.114 350.1.13.10 4.2.7.2.686 [id number] [facility] 2020-10-20 12:22:00 2020-10-20 12:22:00 Outpatient Miller_S_AH VFP VFP [id number] [facility] 2020-09-29 08:21:00 2020-09-29 08:21:00 Outpatient Georgi-Mbayo _A_AH VFP VFP [id number] [facility] 2020-07-17 14:50:00 2020-07-17 14:50:00 Outpatient [facility] [id number] [facility] 2020-07-15 10:21:00 2020-07-15 10:21:00 Outpatient Georgi-Mbayo _A_AH VFP VFP [id number] [facility] 2020-07-15 10:21:00 2020-07-15 10:21:00 Outpatient Georgi-Mbayo _A_AH VFP VFP [id number] [facility] 2020-06-19 15:30:00 2020-06-19 15:30:00 Outpatient BRUNO DEMPSEY [facility] [id number] [facility] 2020-05-17 10:58:00 2020-05-17 10:58:00 Outpatient Georgi-Mbayo _A_AH VFP VFP [id number] [facility] 2020-05-17 00:00:00 2020-05-17 00:00:00 Darling ha, 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 [email or web address] Direct [id number] [facility] 2020-03-15 04:44:00 2020-03-15 04:44:00 Outpatient Ambrose _K[facility] [id number] [facility] 2020-03-03 00:00:00 2020-03-03 00:00:00 Darling ha, STAFF [employer] OFFICER: [address] [facility], [address] [address], [place] [address] , Ph. [facility] - [email or web address] Direct [id number] [facility] 2020-03-02 00:00:00 2020-03-02 00:00:00 Maggie Platt [facility] [place] 1.2.840.114 350.1.13.10 4.2.7.2.686 [id number] [facility] 2020-01-13 08:24:11 2020-01-13 08:39:11 Office Visit Lesa [facility] [place] 1.2.840.114 350.1.13.10 4.2.7.2.686 [id number] [facility] 2020-01-13 08:24:11 2020-01-13 08:39:11 Office Visit Lesa [facility] [place] 1.2.840.114 350.1.13.10 4.2.7.2.686 [id number] 2020-01-13 08:30:00 2020-01-13 08:30:00 Outpatient Immanuel PLATT [facility] [id number] [facility] 2019-12-31 00:00:2019-12-31 00:00:00 Telephone Shen Kelly [facility] isabela [place] 1.2.840.114 350.1.13.10 4.2.7.2.686 [id number] [facility] 2019-12-26 00:00:00 2019-12-26 00:00:00 Orders Only Doctor Unassigned, [place] [facility] 1.2.840.114 350.1.13.10 4.2.7.2.686 [id number] [facility] 2019-12-26 00:00:00 2019-12-26 00:00:00 Orders Only Doctor Unassigned, [place] [facility] 1.2.840.114 350.1.13.10 4.2.7.2.686 [id number] 2019-12-25 00:00:00 2019-12-25 00:00:00 Telephone Shen [facility] 1.2.840.114 350.1.13.10 4.2.7.2.686 [id number] [facility] 2019-12-24 00:00:00 2019-12-24 00:00:00 Telephone Shen Kelly [facility] isabela [place] 1.2.840.114 350.1.13.10 4.2.7.2.686 [id number] [facility] 2019-12-11 09:35:00 2019-12-11 23:59:00 Hospital Encounter Shen Kelly [facility] 1.2.840.114 350.1.13.10 4.2.7.2.686 [id number] [facility] 2019-12-11 10:14:11 2019-12-11 10:57:50 Office Visit Shen Kelly [facility] isabela [place] 1.2.840.114 350.1.13.10 4.2.7.2.686 [id number] [facility] 2019-12-11 10:15:00 2019-12-11 10:15:00 Outpatient R SHEN KELLY [facility] [id number] [facility] 2019-12-10 00:00:00 2019-12-10 00:00:00 Telephone Shen Kelly [facility] isabela [place] 1.2840.114 350.1.13.10 4.2.7.2.686 [id number] [facility] 2019-12-08 00:00:00 2019-12-08 00:00:00 Orders Only Doctor Unassigned, [place] [facility] 1.2.114 350.1.13.10 4.2.7.2.686 [id number] [facility] 2019-07-02 07:14:00 2019-07-02 07:14:00 Outpatient Georgi-Mbayo _A_AH [facility] [id number] [facility] 2018-12-09 14:02:48 2018-12-09 23:59:00 Hospital Encounter Shen Kelly [facility] isabela [place] 1.2840.114 350.1.13.10 4.2.7.2.686 [id number] [facility] 2018-12-09 13:41:33 2018-12-09 14:27:53 Office Visit Shen Kelly [facility] isabela [place] 1.2.840.114 350.1.13.10 4.2.7.2.686 [id number] [facility] 2018-12-03 00:00:00 2018-12-03 00:00:00 Orders Only Doctor Unassigned, [place] [facility] 1.2840.114 350.1.13.10 4.2.7.2.686 [id number] [facility] Results Test Description Test Time Test Comments Results Result Comments Source XR FOOT 3+ VW RIGHT 2023-12-13 1 00:24:38 History: fall, pain and swelling . Exam: XR ANKLE 3+ VW RIGHT, XR FOOT 3+ VW RIGHT Date: 12/22/2023 6:03 PM Ordering provider: MONICA GARCIA Technical quality: Adequate Comparison: None available. Findings: Right ankle: Frontal, lateral, and oblique views are obtained. There is afracture in the distal diametaphysis of the fibula with the fragmentsdisplaced by 4.5 mm. There is a 2 mm linear ossific density distal to themedial malleolus. No evidence of dislocation. Soft tissue swelling isnoted. Right foot: Frontal, lateral, and oblique views are obtained. No evidenceof an additional fracture in the right foot. No evidence of dislocation.There are small inferior and moderate posterior calcaneal spurs. [facility] XR ANKLE 3+ VW RIGHT 2023-12-13 1 00:24:38 History: fall, pain and swelling . Exam: XR ANKLE 3+ VW RIGHT, XR FOOT 3+ VW RIGHT Date: 12/22/2023 6:03 PM Ordering provider: MONICA GARCIA Technical quality: Adequate Comparison: None available. Findings: Right ankle: Frontal, lateral, and oblique views are obtained. There is afracture in the distal diametaphysis of the fibula with the fragmentsdisplaced by 4.5 mm. There is a 2 mm linear ossific density distal to themedial malleolus. No evidence of dislocation. Soft tissue swelling isnoted. Right foot: Frontal, lateral, and oblique views are obtained. No evidenceof an additional fracture in the right foot. No evidence of dislocation.There are small inferior and moderate posterior calcaneal spurs. [facility] XR KNEE 3 VW LEFT 2019-11-14 0 15:10:08 HISTORY: ?Pain. FINDINGS: Standing AP and lateral views of left knee showed no acutefracture or dislocation. No significant changes of arthritis or aggressivebone lesions seen. No significant knee joint effusion. CONCLUSIONS: No acute fracture or dislocation in left knee. [facility], [facility] Results Inft User - 12/11/2019 10:11 AM CDTHISTORY: Pain.FINDINGS: Standing AP and lateral views of left knee showed no acutefracture or dislocation. No significant changes of arthritis or aggressivebone lesions seen. No significant knee joint effusion.CONCLUSIONS: No acute fracture or dislocation in left knee. [facility] XR KNEE <3 VW RIGHT 2018-11-12 20:22:26 Bone on bone osteoarthritis [facility] Notes Date/Time Note Provider Source 2023-12-22 17:20:00 Addended by: MONICA LIRIANO on: 12/22/2023 07:10 PM Modules accepted: Orders T [facility]
[2024-09-16 14:29] LABS: Specific Gravity 1.027 (1.005-1.030); Urine Bacteria <20 /HPF (<20); Urine Bilirubin NEGATIVE (Negative); Urine Blood Negative (Negative); Urine Clarity Extremely Turbid (Clear); Urine Color Yellow (Yellow); Urine Culture Reflex Order NOT NEEDED; Urine Glucose NEGATIVE (Negative); Urine Ketones NEGATIVE (Negative); Urine Microscopic Reflex YN ORDER UMIC; Urine Mucus 3+ /HPF (None Seen); Urine Nitrite NEGATIVE (Negative); Urine Protein 1+ (Negative); Urine RBC <5 /HPF (None Seen); Urine Urobilinogen 1+ (Normal); Urine WBC <5 /HPF (<5); Urine Yeast (Budding) Trace /HPF (None Seen)
[2024-09-16 14:51] LABS: Absolute Basophils 0.1 K/uL (0-0.5); Absolute Eosinophils 0.4 K/uL (0-0.5); Absolute Monocytes 0.7 K/uL (0.1-1.3); Basophils % 0.9 % (0-1.3); Eosinophils % 5.1 % (0-4.4); Hematocrit 38.2 % (36.0-45.0); Hemoglobin 12.8 g/dL (12.0-15.0); Lymphocytes % 27.8 % (15.3-44.8); MCH 29.8 pg (27.0-35.0); MCHC 33.4 g/dL (32.0-36.0); MCV 89.2 fL (80-100); MPV 9.6 fL (7.6-11.3); Neutrophils % 56.2 % (41.7-73.7); Nucleated Red Blood Cells % 0.1 % (0-0); Platelets 196 thou/uL (152-406); RBC Red Blood Cell Count 4.28 M/uL (3.86-4.86); Red Cell Distribution Width 14.6 % (12.1-15.2)
[2024-09-16 15:04] LABS: Albumin 3.4 g/dL (3.4-5.0); Albumin/Globulin Ratio 0.8 (1.1-1.8); Anion Gap 8.8 mEq/L (5.0-15.0); Bilirubin Total 0.3 mg/dL (0.2-1.0); Globulin 4.2 g/dL (2.3-3.5); Protein, Total 7.6 g/dL (6.4-8.2)
[2024-09-16 15:05] LABS: Potassium 3.8 mEq/L (3.5-5.1)
[2024-09-16] MEDS ORDERED: NA CHLORIDE 0.9% 500 ML ONE (17:10)
--- NOTE | 2024-09-16 17:23 | RAD REPORT ---
EXAMINATION: CT Abdomen Pelvis W Contrast CLINICAL INDICATION: Female, 74 years old. ABD PAIN TECHNIQUE: CT abdomen and pelvis was performed, after the administration of IV contrast, as [facility]. Axial, sagittal and coronal reconstructions were obtained. One or more of the following dose reduction techniques were used: Automated exposure control, adjustment of the mA and k V according to patient size, and iterative reconstruction. Unless otherwise specified, incidental findings do not require dedicated imaging follow-up. COMPARISON: No prior exam. FINDINGS: LOWER CHEST: The visualized lung bases are clear. LIVER: Normal in size and contour. No focal lesion. BILIARY SYSTEM: No suspicious abnormalities. SPLEEN: Normal size. No focal lesion. PANCREAS: No mass, ductal dilation, or ramiro-pancreatic fluid. ADRENALS: Normal; no mass. KIDNEYS: Normal size and contour. No hydronephrosis. URINARY BLADDER: Decompressed limiting evaluation. GASTROINTESTINAL TRACT: No evidence of free air, significant intra-abdominal free fluid, bowel obstru ction or abscess. APPENDIX: Normal appendix. LYMPH NODES: No lymphadenopathy. MUSCULOSKELETAL: No acute or suspicious osseous abnormality. ADDITIONAL FINDINGS: Sequelae of right mastectomy, partially visualized. IMPRESSION: No acute or concerning abnormalities seen in the abdomen or pelvis.
--- NOTE | 2024-09-16 17:35 | ER ---
Nurse's Notes [facility] Name: Berenice Chatman Age: 74 yrs Sex: Female : 1950 Arrival Date: 09/16/2024 Time: 13:08 Bed 16 Private MD: Diagnosis: Abdominal pain, Generalized;flank pain Presentation: 09/16 13:14 Chief complaint: Patient states: L flank pain for 3 days. Coronavirus screen: Client ll1 denies travel out of the [place] in the last 14 days. At this time, the client does not indicate any symptoms associated with coronavirus-19. Ebola Screen: Patient denies travel to an Ebola-affected area in the 21 days before illness onset. Initial Sepsis Screen: Does the patient meet any 2 criteria? No. Patient's initial sepsis screen is negative. Does the patient have a suspected source of infection? No. Patient's initial sepsis screen is negative. Risk Assessment: Do you want to hurt yourself or someone else? Patient reports no desire to harm self or others. Onset of symptoms was September 14, 2024. 13:14 Method Of Arrival: Ambulatory [facility] 13:14 Acuity: ASHLEY 3 ll1 Historical: - Allergies: 13:15 No Known Allergies; ll1 - PMHx: 13:15 Aneurysm; Hypertensive disorder; Hypothyroidism; ll1 - PSHx: 13:15 breast CA- R removed; R ankle surgery; ll1 - Immunization history:: Adult Immunizations up to date. - Infectious Disease History:: Denies. - Social history:: Smoking status: Patient denies any tobacco usage or history of. Screenin:22 [facility] ED Fall Risk Assessment (Adult) History of falling in the last 3 months, db including since admission No falls in past 3 months (0 pts) Confusion or Disorientation No (0 pts) Intoxicated or Sedated No (0 pts) Impaired Gait No (0 pts) Mobility Assist Device Used No (0 pt) Altered Elimination No (0 pt) Score/Fall Risk Level 0 - 2 = Low Risk Oriented to surroundings, Maintained a safe environment. Abuse screen: Denies threats or abuse. Denies injuries from another. Nutritional screening: No deficits noted. Tuberculosis screening: No symptoms or risk factors identified. Assessment: 13:30 Reassessment: Patient appears in no apparent distress at this time. Patient and/or db family updated on plan of care and expected duration. Pain level reassessed. Patient is alert, oriented x 3, equal unlabored respirations, skin warm/dry/pink. General: Appears in no apparent distress. comfortable, Behavior is calm, cooperative. Pain: Complains of pain in abdomen. Neuro: Level of Consciousness is awake, alert, obeys commands, Oriented to person, place, time, situation. Respiratory: Airway is patent Respiratory effort is even, unlabored, Respiratory pattern is regular, symmetrical. 15:10 Reassessment: Patient appears in no apparent distress at this time. Patient and/or db family updated on plan of care and expected duration. Pain level reassessed. Patient is alert, oriented x 3, equal unlabored respirations, skin warm/dry/pink. 17:24 Reassessment: Patient appears in no apparent distress at this time. Patient and/or db family updated on plan of care and expected duration. Pain level reassessed. Patient is alert, oriented x 3, equal unlabored respirations, skin warm/dry/pink. Vital Signs: 13:14 Resp 17; Weight 89.81 kg; Height 5 ft. 5 in. ; Pain 8/10; ll1 14:45 BP 161 / 83; Pulse 63; Resp 16; Pulse Ox 99% ; db 15:30 BP 179 / 99; Pulse 85; Resp 16; Pulse Ox 100% ; db 16:00 BP 166 / 83; Pulse 77; Resp 18; Pulse Ox 99% on R/A; db 17:00 BP 155 / 89; Pulse 73; Resp 16; Pulse Ox 99% on R/A; db 13:14 Body Mass Index 32.95 (89.81 kg, 165.1 cm) ll1 13:14 Pain Scale: Adult ll1 ED Course: 13:11 Patient arrived in ED. im 13:12 Sarahy Valencia FNP-C [facility]. kb 13:12 Brian Chatman MD is Attending Physician. kb 13:15 Triage completed. ll1 13:18 Arm band placed on Patient placed in an exam room, on a stretcher. ll1 13:45 Initial lab(s) drawn, by me, sent to lab. Missed attempt(s): 22 gauge in left wrist. db Bleeding controlled, band aid applied, catheter tip intact. 14:18 Delilah Macario, RN is Primary Nurse. db 14:21 UA Rfx Ha Cult if indicated Sent. cc6 14:26 Patient has correct armband on for positive identification. Bed in low position. Call db light in reach. Side rails up X 1. Pulse ox on. NIBP on. 14:35 Lab(s) recollected, by me, sent to lab. Inserted saline lock: 22 gauge in left hand, db using aseptic technique. Blood collected. Flushed with 10 mL NS. 14:59 Radiology exam delayed due to lab results not completed at this time. (BUN/Creatinine). jc4 15:22 CT Abd/Pelvis - IV Contrast Only In Process Unspecified. EDMS 15:27 Patient moved back from CT. db 17:45 Provided Education on: DISCHARGE AND FOLLOWUP . Warm blanket given. Pillow given. db 17:45 No provider procedures requiring assistance completed. IV discontinued, intact, db bleeding controlled, No redness/swelling at site. Administered Medications: 16:55 Drug: NS 0.9% IV 500 ml 500 ml IV at 1 bolus once; to be given as a bolus over 30 db minutes Volume: 500 ml; Route: IV; Rate: 1 bolus; Site: left wrist; 17:46 Follow up: Response: No adverse reaction; IV Status: Completed infusion; IV Intake: db 500ml Medication: 14:26 VIS not applicable for this client. db Intake: 17:46 IV: 500ml; Total: 500ml. db Outcome: 17:35 Discharge ordered by . kb 17:45 Discharged to home ambulatory, db 17:45 Condition: stable 17:45 Discharge instructions given to patient, Instructed on discharge instructions, follow up and referral plans. 17:46 Patient left the ED. db Signatures: Dispatcher [employer] EDMS Sarahy Valencia, PORTFOLIO STRATEGIST-C PORTFOLIO STRATEGIST-Nikole Gonzalez, RN RN ll1 Delilah Macario, RN RN db Yamilka Israel Justin jc4 Micaela Grant cc6
--- NOTE | 2024-09-16 17:35 | EDPHYS ---
Physician Documentation [facility] Name: Berenice Chatman Age: 74 yrs Sex: Female : 1950 Arrival Date: 09/16/2024 Time: 13:08 Bed 16 Private MD: ED Brian Mendoza HPI: 09/16 13:39 This 74 yrs old Black Female presents to ER via Ambulatory with complaints of Back kb Pain, Abdominal Pain. 13:39 Pt is a 74 year old female who presents for 3 day history of left flank pain that kb radiates to left abd. Denies nausea, vomiting, diarrhea, fever, urinary symptoms. No aggravating or alleviating factors. . Historical: - Allergies: 13:15 No Known Allergies; ll1 - PMHx: 13:15 Aneurysm; Hypertensive disorder; Hypothyroidism; ll1 - PSHx: 13:15 breast CA- R removed; R ankle surgery; ll1 - Immunization history:: Adult Immunizations up to date. - Infectious Disease History:: Denies. - Social history:: Smoking status: Patient denies any tobacco usage or history of. ROS: 13:38 Constitutional: As per HPI kb Exam: 13:38 Constitutional: This is a well developed, well nourished patient who is awake, alert, kb and in no acute distress. Head/Face: Normocephalic, atraumatic. ENT: Moist Mucous membranes Cardiovascular: Regular rate Respiratory: Respirations even and unlabored. No increased work of breathing. Talking in full sentences Skin: Warm, dry with normal turgor. Normal color. MS/ Extremity: Pulses equal, no cyanosis. Neurovascular intact. Full, normal range of motion. Neuro: Awake and alert, GCS 15, oriented to person, place, time, and situation. 13:38 Abdomen/GI: Inspection: abdomen appears normal, Bowel sounds: normal, Palpation: soft, in all quadrants, moderate abdominal tenderness, in the left upper quadrant and left lower quadrant, 13:38 Back: CVA tenderness, that is moderate, is noted on the left, Vital Signs: 13:14 Resp 17; Weight 89.81 kg; Height 5 ft. 5 in. ; Pain 8/10; ll1 14:45 BP 161 / 83; Pulse 63; Resp 16; Pulse Ox 99% ; db 15:30 BP 179 / 99; Pulse 85; Resp 16; Pulse Ox 100% ; db 16:00 BP 166 / 83; Pulse 77; Resp 18; Pulse Ox 99% on R/A; db 17:00 BP 155 / 89; Pulse 73; Resp 16; Pulse Ox 99% on R/A; db 13:14 Body Mass Index 32.95 (89.81 kg, 165.1 cm) ll1 13:14 Pain Scale: Adult ll1 MDM: 13:12 Medical Screening Exam initiated kb 13:40 Differential diagnosis: nephrolithiasis, pyelonephritis, UTI, diverticulitis. Data kb reviewed: vital signs, nurses notes. 16:15 ED course: Pt updated on diagnostic results and that Ct scan was still pending. . kb 17:34 Counseling: I had a detailed discussion with the patient and/or guardian regarding the kb historical points, exam findings, and any diagnostic results supporting the discharge/admit diagnosis, lab results, radiology results, the need for outpatient follow up, a family practitioner, to return to the emergency department if symptoms worsen or persist or if there are any questions or concerns that arise at home. 09/16 13:15 Order name: CBC with Diff; Complete Time: 15:18 kb 09/16 13:15 Order name: CMP; Complete Time: 15:18 kb 09/16 13:15 Order name: Lipase; Complete Time: 15:18 kb 09/16 13:15 Order name: UA Rfx Ha Cult if indicated; Complete Time: 14:30 kb 09/16 13:15 Order name: CT Abd/Pelvis - IV Contrast Only; Complete Time: 17:28 kb 09/16 13:15 Order name: IV Saline Lock; Complete Time: 14:19 kb 09/16 13:15 Order name: Labs collected and sent; Complete Time: 14:19 kb 09/16 14:11 Order name: Labs - recollect needed: recollect green and lavender top; Complete Time: bd 15:01 Administered Medications: 16:55 Drug: NS 0.9% IV 500 ml 500 ml IV at 1 bolus once; to be given as a bolus over 30 db minutes Volume: 500 ml; Route: IV; Rate: 1 bolus; Site: left wrist; 17:46 Follow up: Response: No adverse reaction; IV Status: Completed infusion; IV Intake: db 500ml Disposition Summary: 09/16/24 17:35 Discharge Ordered Notes: Location: Home kb Condition: Stable(09/16/24 17:35) kb Diagnosis - Abdominal pain, Generalized kb - flank pain kb Followup: kb - With: Emergency Department - When: As needed - Reason: Worsening of condition Followup: kb - With: Private Physician - When: 2 - 3 days - Reason: Recheck today's complaints, Continuance of care, Re-evaluation by your physician Discharge Instructions: - Discharge Summary Sheet kb - Abdominal Pain, Adult, [id number] kb - Flank Pain, Adult, [id number] kb Forms: - Medication Reconciliation Form kb - Antibiotic Education kb - Prescription Opioid Use kb - Patient Portal Instructions kb - Leadership Thank You Letter kb Addendum: 09/17/2024 23:30 Co-signature as Attending Physician, Brian Chatman MD I agree with the assessment and c hopson plan of care. Signatures: Dispatcher [employer] EDMS Sarahy Valencia, CHIEF MECHANICAL OFFICER-C CHIEF MECHANICAL OFFICER-Ckb Precious Reed Corey, MD MD cha Lewis, Lynsay, RN RN ll1 Delilah Macario RN RN db Corrections: (The following items were deleted from the chart) 09/16 13:16 13:16 CBC+H.LAB.BRZ ordered. EDMS EDMS 13:16 13:16 COMPREHENSIVE METABOLIC PANEL+C.LAB.BRZ ordered. EDMS EDMS 13:16 13:16 LIPASE+C.LAB.BRZ ordered. EDMS EDMS 13:16 13:16 UA Rfx Ha Cult if indicated+U.LAB.BRZ ordered. EDMS EDMS 13:16 13:16 Abdomen Pelvis W Con+CT.RAD.BRZ ordered. EDMS EDMS 17:35 17:35 Fair kb kb
[2024-09-16 22:19] VITALS: O2SAT 99
[2024-09-16 22:21] VITALS: BP 155/89
== END 2024-09-16 17:46 | disposition home or self-care (01) ==
LOC: ER 13:08
DX: R10.84 Generalized abdominal pain (principal)
CPT/HCPCS: 85025; 81001; 36415; 83690; 80053; 74177; 96360; 99285; Q9967; J7040